=== PATIENT | female | born 1965 | race Caucasian/White ===

== ENCOUNTER 2021-07-12 22:07 | Inpatient (IN) | payer MEDICAID, SELFPAY ==
[2021-07-12] MEDS ORDERED: METHYLPREDNISOLONE 125 MG INJ ONE (22:34)
[2021-07-12 22:42] LABS: Absolute Lymphocytes (CBC) 1.2 K/uL (0.7-4.9); Hematocrit 41.4 % (36.0-45.0); Lymphocytes % 15.1 % (15.3-44.8); MPV 8.9 fL (7.6-11.3); RBC Red Blood Cell Count 4.72 M/uL (3.86-4.86)
[2021-07-12 22:46] LABS: Protime INR 1.09
[2021-07-12 23:16] LABS: ALT/SGPT 38 U/L (12-78); AST/SGOT 38 U/L (15-37); Albumin 2.7 g/dL (3.4-5.0); Alkaline Phosphatase 59 U/L (45-117); BUN Blood Urea Nitrogen 13 mg/dL (7-18); Bicarbonate 24 mmol/L (21-32); Bilirubin Direct < 0.1 mg/dL (0-0.2); Bilirubin Total 0.3 mg/dL (0.2-1.0); Ferritin 410.8 ng/mL (8-388); Glucose Level 132 mg/dL (74-106); Lipase 167 U/L (73-393); Magnesium 2.2 mg/dL (1.8-2.4); Potassium 3.9 mmol/L (3.5-5.1); Protein, Total 7.9 g/dL (6.4-8.2); Sodium Level 133 mmol/L (136-145); Troponin (Emerg Dept Use Only) < 0.02 ng/mL (0.0-0.045)
[2021-07-12] MEDS ORDERED: ENOXAPARIN 100 MG/ML SYR SQ ONE (23:30)
[2021-07-12 23:53] LABS: SARS-COV-2 RT PCR POSITIVE (NEGATIVE)
--- NOTE | 2021-07-13 00:44 | ER ---
Nurse's Notes [facility] Name: Arabella Khan Age: 56 yrs Sex: Female : 1965 Arrival Date: 07/12/2021 Time: 22:08 Bed 6 Private MD: Diagnosis: Pneumonia due to SARS-associated coronavirus;Acute respiratory failure with hypoxia Presentation: 07/12 22:42 Chief complaint: EMS states: She has been feeling ill for the past three weeks, but has tw5 not sought medical help. Her oxygen level was 68 % on Room air. Coronavirus screen: Vaccine status: uknown. Ebola Screen: Patient negative for fever greater than or equal to 101.5 degrees Fahrenheit, and additional compatible Ebola Virus Disease symptoms Patient denies exposure to infectious person. Patient denies travel to an Ebola-affected area in the 21 days before illness onset. Initial Sepsis Screen: Does the patient meet any 2 criteria? RR > 20 per min. HR > 90 bpm. Yes Does the patient have a suspected source of infection? No. Patient's initial sepsis screen is negative. Risk Assessment: Do you want to hurt yourself or someone else? Patient reports no desire to harm self or others. Onset of symptoms is unknown. 22:42 Method Of Arrival: EMS: [facility] tw5 22:42 Acuity: SAMARA 2 tw5 Triage Assessment: 22:42 General: Appears distressed, Behavior is anxious. Pain: Complains of pain in chest Pain tw5 currently is 7 out of 10 on a pain scale. 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 - Social history:: Smoking status: Patient denies any tobacco usage or history of. Screenin/02 22:47 Abuse screen: Denies threats or abuse. Denies injuries from another. Nutritional tw5 screening: No deficits noted. Tuberculosis screening: No symptoms or risk factors identified. Fall Risk No fall in past 12 months (0 pts). No secondary diagnosis (0 pts). IV access (20 points). Ambulatory Aid- Crutches/Cane/Walker (15 pts). Assessment: 22:47 Respiratory: Airway is patent Trachea midline Respiratory effort is labored, tw5 Respiratory pattern is tachypnea. 22:47 General: Appears distressed. Neuro: Level of Consciousness is awake, alert, obeys tw5 commands. Respiratory: Breath sounds are coarse bilaterally. Breath sounds are diminished in left posterior lower lobe, right posterior middle lobe and right posterior lower lobe. 23:28 Reassessment: No changes from previously documented assessment. Patient and/or family tw5 updated on plan of care and expected duration. Pain level reassessed. Cardiovascular: Heart tones S1 S2 present Capillary refill < 3 seconds. Respiratory: Patient placed on BiPAP: Respiratory Rate: 20. 07/13 03:51 General: Behavior is calm, cooperative, appropriate for age. Respiratory: Airway is tw5 patent Trachea midline Respiratory effort is labored, Respiratory pattern is tachypnea. : Urine is clear. 06:01 Reassessment: No changes from previously documented assessment. Patient and/or family tw5 updated on plan of care and expected duration. Pain level reassessed. Patient is alert, oriented x 3, equal unlabored respirations, skin warm/dry/pink. 06:03 Respiratory: Patient placed on BiPAP: Inspiratory Pressure: 14 Expiratory (EPAP) tw5 Pressure: 10 FiO2%: 95 the patient has severe shortness of breath. 20:13 General: Appears in no apparent distress. comfortable, Behavior is calm. Respiratory: tw5 Airway is patent Trachea midline Respiratory effort is even, Respiratory pattern is regular. 21:25 Respiratory: Airway Breath sounds are diminished in right middle lobe, left lower lobe tw5 and right lower lobe. 07/14 01:21 Reassessment: Patient appears in no apparent distress at this time. No changes from tw5 previously documented assessment. " I am just feeling itchy all over.". 03:31 Pain: Complains of pain in chest Pain currently is 5 out of 10 on a pain scale. tw5 Vital Signs: 07/12 22:42 BP 130 / 96; Pulse 112; Resp 22; Temp 99.6; Pulse Ox 88% on Non-rebreather mask; Weight tw5 90.72 kg; Height 5 ft. 1 in. (154.94 cm); Pain 7/10; 23:36 BP 110 / 77; Pulse 101; Resp 27; Pulse Ox 93% on 95% BiPAP; tw5 07/13 04:08 BP 125 / 69; Pulse 92; Resp 18; Pulse Ox 90% on BiPAP; tw5 06:01 BP 125 / 69; Pulse 97; Resp 18; Pulse Ox 90% on 95% BiPAP; tw5 06:53 BP 137 / 112; Pulse 88; Resp 27; Pulse Ox 90% ; tw5 20:13 BP 123 / 61; Pulse 73; Resp 26; Pulse Ox 88% on 100% BiPAP; tw5 21:25 BP 123 / 61; Pulse 72; Resp 29; Pulse Ox 89% on BiPAP; tw5 07/14 01:21 BP 112 / 69; Pulse 73; Resp 26; Pulse Ox 97% on BiPAP; tw5 07/12 22:42 Body Mass Index 37.79 (90.72 kg, 154.94 cm) tw5 ED Course: 07/12 22:08 Patient arrived in ED. mw2 22:14 Manny Mccain PA is PHCP. jr8 22:14 Mike Harris MD is Attending Physician. jr8 22:28 CXR XRAY In Process Unspecified. EDMS 22:32 Xiomara Palma is Primary Nurse. tw5 22:42 Arm band placed on left wrist. tw5 22:46 Triage completed. tw5 22:48 EKG done, COVID swab sent to lab. Inserted saline lock: 20 gauge in right antecubital tw5 area, using aseptic technique. Blood collected. Maintain EMS IV. Dressing intact. Site clean \\T\\ dry. Gauge \\T\\ site: 20 LAC. 22:48 Basic Metabolic Panel Sent. tw5 22:48 Blood Culture Sent. tw5 22:48 BMP Sent. tw5 22:48 Magnesium Sent. tw5 22:48 TS Sent. tw 22:48 COVID-19/FLU A+B (Document "Date of Onset" if Symptomatic) Sent. 22:49 CBC with Diff Sent. tw 22:49 Blood Culture Adult (2) Sent. tw 22:49 LFT's Sent. tw 22:49 Ferritin Sent. tw 22:49 D-Dimer Sent. tw 22:49 C-Reactive Protein Sent. tw5 22:49 Lactate Sent. tw5 22:49 Lipase Sent. tw5 22:49 PT-INR Sent. tw5 22:49 Procalcitonin Sent. tw5 22:49 Troponin (emerg Dept Use Only) Sent. tw5 23:28 Patient has correct armband on for positive identification. Placed in gown. Bed in low tw5 position. Call light in reach. Side rails up X 1. double cutter on. Pulse ox on. NIBP on. Door closed. Noise minimized. Moved to private room. Warm blanket given. Verbal reassurance given. 23:28 Villafuerte cath inserted, using sterile technique, 18 Fr., by mn, balloon inflated, to tw5 gravity drainage, Patient tolerated well. 07/13 00:21 CT Chest For PE Angio In Process Unspecified. EDMS 00:43 Antoine López DO is Hospitalizing Provider. jr8 06:04 No provider procedures requiring assistance completed. tw5 06:09 Urinalysis Sent. tw5 07:00 Patient admitted, IV remains in place. intact, No redness/swelling at site. jl7 20:13 Appears to be sleeping. tw5 21:25 Diet: Patient given water. tw5 07/14 07:23 Primary Nurse role handed off by Xiomara Palma bp 07:23 Sanchez Canchola, RN is Primary Nurse. bp Administered Medications: 07/12 22:42 Drug: SOLU-Medrol (methylPrednisoLONE) 125 mg Route: IVP; Site: right antecubital; tw5 07/13 04:09 Follow up: Response: No adverse reaction tw5 07/12 23:34 Drug: Lovenox (enoxaparin) 1 mg/kg Route: Sub-Q; Site: left lower abdomen; tw5 07/13 04:09 Follow up: Response: No adverse reaction tw Outcome: 00:44 Decision to Hospitalize by Provider. jr8 07:00 Admitted to ER Hold. Please see [facility] for further documentation. jl7 07:00 Condition: stable 07:00 Discharge instructions given to patient, family, Instructed on the need for admit, Demonstrated understanding of instructions. 07/14 10:33 Patient left the ED. kj1 Signatures: Dispatcher [employer] EDMS Manny Mccain PA PA jr8 Gladys Harp RN RN jl7 Peltier, Brian, RN RN bp Yeni Tapia mw2 Jelena Baum kj1 Xiomara Palma tw5
--- NOTE | 2021-07-13 00:45 | EDPHYS ---
Physician Documentation [facility] Name: Arabella Khan Age: 56 yrs Sex: Female : 1965 Arrival Date: 07/12/2021 Time: 22:08 Bed 6 Private MD: ED Physician Mike Harris HPI: 07/12 23:15 This 56 yrs old Female presents to ER via EMS with complaints of shortness of breath. jr8 23:15 The patient has shortness of breath at rest. Onset: The symptoms/episode began/occurred jr8 gradually, 3 week(s) ago, and became worse and became persistent. Duration: The symptoms are continuous. The patient's shortness of breath is aggravated by light activity. Associated signs and symptoms: Pertinent positives: non-productive cough. Severity of symptoms: At their worst the symptoms were moderate in the emergency department the symptoms are unchanged. The patient has not experienced similar symptoms in the past. The patient has not recently seen a physician. also stated that she has had irregular vaginal bleeding . 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 - Social history:: Smoking status: Patient denies any tobacco usage or history of. ROS: 07/12 23:15 Eyes: Negative for injury, pain, redness, and discharge, ENT: Negative for injury, jr8 pain, and discharge, Neck: Negative for injury, pain, and swelling, Cardiovascular: Negative for chest pain, palpitations, and edema, Abdomen/GI: Negative for abdominal pain, nausea, vomiting, diarrhea, and constipation, Back: Negative for injury and pain, MS/Extremity: Negative for injury and deformity, Skin: Negative for injury, rash, and discoloration, Neuro: Negative for headache, weakness, numbness, tingling, and seizure. Respiratory: Positive for cough, dyspnea on exertion, shortness of breath. : Positive for vaginal bleeding. Exam: 23:15 Eyes: Pupils equal round and reactive to light, extra-ocular motions intact. Lids and jr8 lashes normal. Conjunctiva and sclera are non-icteric and not injected. Cornea within normal limits. Periorbital areas with no swelling, redness, or edema. ENT: Nares patent. No nasal discharge, no septal abnormalities noted. Tympanic membranes are normal and external auditory canals are clear. Oropharynx with no redness, swelling, or masses, exudates, or evidence of obstruction, uvula midline. Mucous membranes moist. Neck: Trachea midline, no thyromegaly or masses palpated, and no cervical lymphadenopathy. Supple, full range of motion without nuchal rigidity, or vertebral point tenderness. No Meningismus. 23:15 Abdomen/GI: Soft, non-tender, with normal bowel sounds. No distension or tympany. No guarding or rebound. No evidence of tenderness throughout. Back: No spinal tenderness. No costovertebral tenderness. Full range of motion. MS/ Extremity: Pulses equal, no cyanosis. Neurovascular intact. Full, normal range of motion. Neuro: Awake and alert, GCS 15, oriented to person, place, time, and situation. Cranial nerves II-XII grossly intact. Motor strength 5/5 in all extremities. Sensory grossly intact. 23:15 Constitutional: The patient appears alert, awake, in obvious distress, mildly distressed. 23:15 Cardiovascular: Rate: tachycardic, Pulses: Pulses are 2+ in right radial artery and left radial artery. Heart sounds: normal, normal S1and S2, no S3 or S4, no murmur, no rub, no gallop, Edema: is not appreciated. 23:15 Respiratory: moderate respiratory distress is noted, Respirations: labored breathing, tachypnea, that is moderate, Breath sounds: fine crackles throughout both posterior lung valentin , Respiratory rate: 24 23:15 Skin: Appearance: Color: dusky, Temperature: normal temperature, Moisture: normal moisture. Vital Signs: 22:42 BP 130 / 96; Pulse 112; Resp 22; Temp 99.6; Pulse Ox 88% on Non-rebreather mask; Weight tw5 90.72 kg; Height 5 ft. 1 in. (154.94 cm); Pain 7/10; 23:36 BP 110 / 77; Pulse 101; Resp 27; Pulse Ox 93% on 95% BiPAP; tw5 07/13 04:08 BP 125 / 69; Pulse 92; Resp 18; Pulse Ox 90% on BiPAP; tw5 06:01 BP 125 / 69; Pulse 97; Resp 18; Pulse Ox 90% on 95% BiPAP; tw5 06:53 BP 137 / 112; Pulse 88; Resp 27; Pulse Ox 90% ; tw5 20:13 BP 123 / 61; Pulse 73; Resp 26; Pulse Ox 88% on 100% BiPAP; tw5 21:25 BP 123 / 61; Pulse 72; Resp 29; Pulse Ox 89% on BiPAP; tw07/14 01:21 BP 112 / 69; Pulse 73; Resp 26; Pulse Ox 97% on BiPAP; 07/12 22:42 Body Mass Index 37.79 (90.72 kg, 154.94 cm) tw5 MDM: 07/12 22:14 Patient medically screened. jr8 23:15 Data reviewed: vital signs, nurses notes, lab test result(s), EKG, radiologic studies, jr8 plain films. Data interpreted: Pulse oximetry: on 100 % NRB is 88 %. Interpretation: hypoxia. Counseling: I had a detailed discussion with the patient and/or guardian regarding: the historical points, exam findings, and any diagnostic results supporting the discharge/admit diagnosis, lab results, radiology results, the need for further work-up and treatment in the hospital. 07/12 22:15 Order name: BMP [facility] 07/12 22:15 Order name: Blood Culture Adult (2) 07/12 22:15 Order name: C-Reactive Protein; Complete Time: 23:18 [facility] 07/12 22:15 Order name: CBC with Diff 07/12 22:15 Order name: D-Dimer; Complete Time: 23:14 07/12 22:15 Order name: Ferritin; Complete Time: 23:18 07/12 22:15 Order name: LFT's; Complete Time: 23:18 07/12 22:15 Order name: Lactate; Complete Time: 23:14 07/12 22:15 Order name: Lipase; Complete Time: 23:18 07/12 22:15 Order name: PT-INR; Complete Time: 23:14 07/12 22:15 Order name: Procalcitonin; Complete Time: 23:14 07/12 22:15 Order name: Ptt, Activated; Complete Time: 23:14 jr8 07/12 22:15 Order name: Troponin (emerg Dept Use Only); Complete Time: 23:18 jr8 07/12 22:15 Order name: Magnesium; Complete Time: 23:18 jr8 07/12 22:15 Order name: COVID-19/FLU A+B (Document "Date of Onset" if Symptomatic); Complete Time: [facility] 00:29 07/12 22:15 Order name: TS; Complete Time: 00:29 jr8 07/12 22:16 Order name: Basic Metabolic Panel; Complete Time: 23:18 EDMS 07/12 22:16 Order name: Blood Culture; Complete Time: 03:25 EDMS 07/12 22:16 Order name: CBC with Automated Diff; Complete Time: 23:14 EDMS 07/13 01:55 Order name: Lactate Sepsis 2 HR Follow-up; Complete Time: 02:12 EDMS 07/13 04:26 Order name: ABO/RH no charge; Complete Time: 15:11 EDMS 07/13 06:04 Order name: Urinalysis tw5 07/13 06:09 Order name: Urine Dipstick-Ancillary; Complete Time: 15:11 EDMS 07/13 06:27 Order name: Urinalysis; Complete Time: 15:11 EDMS 07/13 06:52 Order name: Urine Microscopic Only; Complete Time: 15:11 EDMS 07/13 07:57 Order name: Glucose, Ancillary Testing; Complete Time: 15:11 EDMS 07/13 08:27 Order name: Procalcitonin; Complete Time: 15:11 EDMS 07/13 12:05 Order name: C-Reactive Protein; Complete Time: 15:11 EDMS 07/13 16:43 Order name: Glucose, Ancillary Testing; Complete Time: 16:55 EDMS 07/13 21:01 Order name: Glucose, Ancillary Testing; Complete Time: 21:23 EDMS 07/12 22:15 Order name: CXR XRAY; Complete Time: 15:11 jr8 07/12 22:15 Order name: EKG; Complete Time: 22:16 jr8 07/12 22:15 Order name: Cardiac monitoring; Complete Time: 22:48 8 07/12 22:15 Order name: Droplet/Contact Precautions; Complete Time: 22:49 jr8 07/12 22:15 Order name: EKG - Nurse/Tech; Complete Time: 22:49 jr8 07/12 22:15 Order name: IV Start; Complete Time: 22:49 jr8 07/12 22:15 Order name: Labs collected and sent; Complete Time: 22:49 jr8 07/12 22:15 Order name: O2 Per Protocol; Complete Time: 22:49 jr8 07/12 22:15 Order name: O2 Sat Monitoring; Complete Time: :49 8 07/12 22:15 Order name: Urine Dipstick-Ancillary (obtain specimen); Complete Time: :49 jr8 07/12 23:19 Order name: CT Chest For PE Angio jr8 07/12 23:28 Order name: Villafuerte; Complete Time: 23:28 tw5 07/13 00:33 Order name: CONS Physician Consult EDAK 07/13 13:41 Order name: US; Complete Time: 15:11 EDMS 07/14 03:22 Order name: CBC with Automated Diff; Complete Time: 03:25 EDMS 07/14 03:49 Order name: Comprehensive Metabolic Panel EDMS 07/14 03:49 Order name: Phosphorus EDMS 07/14 03:49 Order name: Lipid Profile EDMS 07/14 03:49 Order name: C-Reactive Protein EDMS 07/14 03:49 Order name: T4 Free EDMS 07/14 03:49 Order name: Magnesium EDMS 07/14 03:49 Order name: Thyroid Stimulating Hormone EDMS 07/14 03:49 Order name: Ferritin EDMS 07/14 04:13 Order name: Procalcitonin EDMS 07/14 07:25 Order name: Urine Culture EDAK Administered Medications: 22:42 Drug: SOLU-Medrol (methylPrednisoLONE) 125 mg Route: IVP; Site: right antecubital; tw5 07/13 04:09 Follow up: Response: No adverse reaction tw5 07/12 23:34 Drug: Lovenox (enoxaparin) 1 mg/kg Route: Sub-Q; Site: left lower abdomen; tw07/13 04:09 Follow up: Response: No adverse reaction Disposition: 07:24 Co-signature as Attending Physician, Mike Harris MD. [email or web address] Disposition Summary: 07/13/21 00:44 Hospitalization Ordered Hospitalization Status: Inpatient Admission jr8 Provider: Prezas, Antoine jr8 Condition: Fair jr8 Problem: new jr8 Symptoms: have improved jr8 Bed/Room Type: Standard [facility] Location: Telemetry/MedSurg (Inpatient)(07/14/21 08:45) dw Room Assignment: [facility](07/14/21 08:45) dw Diagnosis - Pneumonia due to SARS-associated coronavirus jr8 - Acute respiratory failure with hypoxia jr8 Forms: - Medication Reconciliation Form jr8 - SBAR form jr8 Signatures: Dispatcher [employer] EDMS Darcy Irving RN RN Zoe Barahona RN RN Manny Mccain PA PA jr8 Mike Harris MD MD 7 Xiomara Palma 5 Corrections: (The following items were deleted from the chart) 02:32 00:44 Telemetry/MedSurg (Inpatient) jr8 02:32 00:44 jr8 07/14 08:45 0103 02:32 [facility] ER HOLD [facility] 07/14 08:45 07/13 02:32 ERHOLD- [facility]
--- NOTE | 2021-07-13 01:15 | P.HP ---
Certification for Inpatient Patient admitted to: Inpatient With expected LOS: >2 Midnights Patient will require the following post-hospital care: None Practitioner: I am a practitioner with admitting privileges, knowledge of patient current condition, hospital course, and medical plan of care. Services: Services provided to patient in accordance with Admission requirements found in Title 42 Section 412.3 of the Code of Federal Regulations Patient History Date of Service: 07/13/21 Reason for admission: covid pneumonia History of Present Illness: Ms. Khan is a 56 yo F who presents with two days of increasing SOB and BARRETT. Upon presentation, room air sats were 68%, increased to 88% on nonrebreather, and then she was placed on BIPAP for sats in the 90s. She says for the past 4 weeks she has had fever, weakness, cough, pleuritic pain wheezing, and diarrhea. Also reports episodes of incontinence and lower abdominal pain with cough.She denies nausea and vomiting. Maintaining food and fluid intake. COVID test positive in the ED. She also reports over the past three weeks she has had heavy vaginal bleeding with clots that is different from her normal monthly periods. - Past Medical/Surgical History Diabetic: No Past Medical History: Patient denies medical history -: eye surgery - Family History Mother -: Diabetes Father Notes: dementia Brother -: Diabetes - Social History Smoking Status: Never smoker Alcohol use: No CD- Drugs: No Caffeine use: Yes Place of Residence: Home Review of Systems 10-point ROS is otherwise unremarkable General: Fever, Weakness, Malaise Eyes: Unremarkable Respiratory: Cough, Shortness of Breath, SOB with Excertion, Pleuritic Pain, Wheezing, As per HPI Cardiovascular: Unremarkable Gastrointestinal: Abdominal Pain, Diarrhea, As per HPI Genitourinary: Incontinence Musculoskeletal: Unremarkable Integumentary: Unremarkable Neurological: Unremarkable Lymphatics: Unremarkable Physical Examination - Physical Exam General: Alert, Obese HEENT: Atraumatic, PERRLA, Mucous membr. moist/pink, EOMI, Sclerae nonicteric Neck: Supple, 2+ carotid pulse no bruit, No LAD, Without JVD or thyroid abnormality Respiratory: Diminished Cardiovascular: No edema, Regular rate/rhythm, Normal S1 S2 Gastrointestinal: Normal bowel sounds, No tenderness Musculoskeletal: No tenderness Integumentary: No rashes Neurological: Normal speech, Normal strength at 5/5 x4 extr, Normal tone, Normal affect Lymphatics: No axilla or inguinal lymphadenopathy Urinary: Villafuerte catheter - Studies Laboratory Data (last 24 hrs) 07/12/21 22:10: PT 12.5, INR 1.09, APTT 30.3 07/12/21 22:10: WBC 8.20, Hgb 13.5, Hct 41.4, Plt Count 268 07/12/21 22:10: Sodium 133 L, Potassium 3.9, BUN 13, Creatinine 1.28, Glucose 132 H, Magnesium 2.2, Total Bilirubin 0.3, AST 38 H, ALT 38, Alkaline Phosphatase 59, Lipase 167 Assessment and Plan - Problems (Diagnosis) (1) Pneumonia due to COVID-19 virus Current Visit: Yes Status: Acute (2) Acute respiratory failure Current Visit: Yes Status: Acute Qualifiers: Respiratory failure complication: hypoxia Qualified Code(s): J96.01 - Acute respiratory failure with hypoxia (3) Menorrhagia Current Visit: Yes Status: Acute Qualifiers: Menorrhagia type: with regular cycle Qualified Code(s): N92.0 - Excessive and frequent menstruation with regular cycle - Plan pulmonology consulted, RT consulted continue BIPAP continue IV steroids, covid supplements daily CRP, procalcitonin, and ferritin CTPE pending, continue eliquis BID transvaginal US pending monitor hemoglobin and hematocrit Discharge Plan: Home Plan to discharge in: Greater than 2 days - Advance Directives Does patient have a Living Will: No Does patient have a Durable POA for Healthcare: No - Code Status/Comfort Care Code Status Assessed: Yes (full code ) Critical Care: No Time Spent Managing Pts Care (In Minutes): 70
[2021-07-13] MEDS ORDERED: BENZONATATE 100 MG CAP PO PRN (05:57)
[2021-07-13] MEDS ORDERED: MELATONIN 5 MG TABLET PO PRN (05:57)
[2021-07-13] MEDS ORDERED: HYDROCODONE/CHLORPHEN 5 ML/OSYR PO PRN (05:57)
[2021-07-13] MEDS ORDERED: ACETAMINOPHEN 500 MG TAB PO PRN (05:57)
[2021-07-13] MEDS ORDERED: ONDANSETRON 4 MG/2 ML VIAL IV PRN (05:57)
[2021-07-13 06:09] LABS: Urine Blood 2+ (Negative); Urine Glucose Negative (Negative); Urine Protein 2+ (Negative); Urine Specific Gravity <=1.005 (1.005-1.030); Urine pH 5.5 (5.0-7.0)
[2021-07-13 06:19] LABS: Urine Appearance CLEAR (Clear); Urine Bilirubin NEGATIVE (Negative); Urine Blood 2+ (Negative); Urine Color YELLOW (Yellow); Urine Glucose NEGATIVE (Negative); Urine Protein 1+ (Negative); Urine Specific Gravity >=1.030 (1.005-1.030)
[2021-07-13 06:26] LABS: Urine Microscopic Reflex ORDER UMIC
[2021-07-13 06:52] LABS: Urine Bacteria 20-50 /HPF (<20)
[2021-07-13] MEDS: INSULIN -REGULAR HUMAN 50 UNIT/0.5 ML ML SQ SCH ×4 (07:30→20:50)
--- NOTE | 2021-07-13 07:36 | RAD REPORT ---
EXAM DESCRIPTION: RAD - Chest Single View - 07/12/2021 10:28 pm CLINICAL HISTORY: DYSPNEA COMPARISON: Chest For Pe Angio dated 07/12/2021 FINDINGS: Lines: None. Lungs: Moderate to severe bilateral interstitial and airspace opacities. Pleural: No significant pleural effusions or pneumothorax. Cardiac: The heart size is within normal limits. Bones: No acute fractures. Other: IMPRESSION: Widespread airspace disease concerning for multifocal pneumonia, including Covid-19.
[2021-07-13] MEDS ORDERED: POTASSIUM 25 MEQ EFFERV TAB PO ONE (07:44)
[2021-07-13] MEDS ORDERED: ASPIRIN EC 81 MG TAB PO ONE (08:08)
[2021-07-13] MEDS ORDERED: NPH (HUMAN) 100 UNITS/ML INSULIN SQ ONE (08:08)
[2021-07-13] MEDS ORDERED: THIAMINE HCL 100 MG TABLET ONE (08:08)
[2021-07-13] MEDS ORDERED: ASCORBIC ACID 500 MG TABLET ONE ×2 (08:08→20:55)
[2021-07-13] MEDS ORDERED: METHYLPREDNISOLONE 40 MG INJ ONE ×2 (08:09→20:56)
[2021-07-13] MEDS ORDERED: APIXABAN 5 MG TABLET ONE ×2 (08:09→20:55)
[2021-07-13] MEDS ORDERED: VITAMIN D 1000 UNIT TAB ONE (08:09)
[2021-07-13] MEDS ORDERED: FAMOTIDINE 20 MG TAB ONE (08:10)
[2021-07-13] MEDS ORDERED: POTASSIUM 25 MEQ EFFERV TAB ONE (08:10)
[2021-07-13] MEDS ORDERED: MORPHINE 2 MG/ML SYR ONE (08:11)
[2021-07-13] MEDS: ASCORBIC ACID 500 MG TABLET PO SCH ×4 (09:00→21:00)
[2021-07-13] MEDS: VITAMIN D 1000 UNIT TAB PO SCH (09:00)
[2021-07-13] MEDS: ZINC SULFATE 220 MG CAP PO SCH (09:00)
[2021-07-13] MEDS: ASPIRIN EC 81 MG TAB PO SCH (09:00)
[2021-07-13] MEDS: THIAMINE HCL 100 MG TABLET PO SCH (09:00)
[2021-07-13] MEDS: FAMOTIDINE 20 MG TAB PO SCH (09:00)
[2021-07-13] MEDS: METHYLPREDNISOLONE 125 MG INJ IV SCH ×2 (09:00→21:00)
[2021-07-13] MEDS: APIXABAN 5 MG TABLET PO SCH ×2 (09:00→21:00)
[2021-07-13] MEDS: MORPHINE 2 MG/ML SYR IV PRN (09:05)
--- NOTE | 2021-07-13 11:01 | P.CNS ---
Date of Consult: 07/13/21 Reason for Consult: Respiratory failure from coronavirus Chief Complaint: covid pneumonia History of Present Illness: Patient is 56 years of age admitted with acute onset of shortness of breath dyspnea on exertion respiratory failure x-ray consistent with coronavirus pneumonia she is currently on BiPAP/currently for the past 4 weeks she has been having some problems history of recent heavy vaginal bleeding Allergies victine Allergy (Uncoded 07/13/21 05:57) Anaphylaxis - Past Medical/Surgical History Diabetic: No -: eye surgery - Family History Mother Medical History: Diabetes Father Notes: dementia Brother Medical History: Diabetes - Social History Alcohol use: No CD- Drugs: No Caffeine use: Yes Place of Residence: Home Review of Systems General: Weakness Respiratory: Shortness of Breath Physical Examination Temp Pulse Resp BP Pulse Ox 97.6 F 84 22 H 100/56 L 90 L 07/13/21 08:00 07/13/21 08:00 07/13/21 09:05 07/13/21 08:00 07/13/21 09:05 General: Alert, Moderate distress, Other (Patient is on BiPAP) Laboratory Data (last 24 hrs) 07/12/21 22:10: PT 12.5, INR 1.09, APTT 30.3 07/12/21 22:10: WBC 8.20, Hgb 13.5, Hct 41.4, Plt Count 268 07/12/21 22:10: Sodium 133 L, Potassium 3.9, BUN 13, Creatinine 1.28, Glucose 132 H, Magnesium 2.2, Total Bilirubin 0.3, AST 38 H, ALT 38, Alkaline Phosphatase 59, Lipase 167 - Problems (1) Pneumonia due to COVID-19 virus Current Visit: Yes Status: Acute Plan: Patient is 56 years of age admitted with respiratory failure from coronavirus chest x-ray characteristic changes patient is on maximum oxygen prognosis poor severe changes on the x-ray patient has not been vaccinated or has had coronavirus infection before
--- NOTE | 2021-07-13 13:40 | RAD REPORT ---
EXAM DESCRIPTION: US - Transvaginal Study Probe - 07/13/2021 12:41 pm CLINICAL HISTORY: abnormal vaginal bleeding Pelvic pain. COMPARISON: No comparisons FINDINGS: Extremely limited study is submitted. The uterus appears grossly normal in size. The endometrial stripe measures 18 mm, thickened. Neither ovary is well identified. Bowel gas shadowing obscures both ovaries. No adnexal mass is present. No significant pelvic ascites. IMPRESSION: A very limited examination is submitted.Endometrial stripe appears thickened to 18 mm. T his can be result of endometrial hyperplasia, polyp or carcinoma. Direct visualization with hysterosc opy may be considered.
[2021-07-13] MEDS: BARICITINIB 2 MG TABLET PO SCH (15:00)
--- NOTE | 2021-07-13 15:07 | P.PN ---
Date of Service: 07/13/21 Patient seen and examined. She is currently dependent on BiPAP and 100% FiO2. Patient seen by pulmonary. Impression: Pneumonia due to COVID-19 Acute respiratory failure with hypoxia Morbid obesity Plan: Pulmonary input appreciated. Continue IV steroid. Patient started on baricitinib. Anticoagulation with Eliquis. Watch for active bleeding. Monitor BMP and CBC. Wean oxygen.
--- NOTE | 2021-07-13 17:10 | RAD REPORT ---
EXAM DESCRIPTION: CT - Chest For Pe Angio - 07/13/2021 6:16 am CLINICAL HISTORY: DYSPNEA. COMPARISON: None. TECHNIQUE: CTA of the chest was performed following intravenous administration of iodinated contrast . Axial soft tissue and lung window, and coronal and sagittal soft tissue window reconstructions were created and sent to PACS. 3D postprocessing was performed on an independent workstation, with images sent to PACS for subsequen t review. This exam was performed according to our departmental dose-optimization program, which includes autom ated exposure control, adjustment of the mA and/or kV according to patient size and/or use of iterati ve reconstruction technique. FINDINGS: Suboptimal exam due to mild streak artifact from patient body habitus. Vascular: The pulmonary arteries are adequately opacified to the segmental level. No CT evidence of a cute pulmonary thromboembolism. No evidence of aortic aneurysm or dissection. Lungs and pleura: Moderate streaky pulmonary opacities with associated interstitial thickening and gr oundglass opacities throughout both lungs. No pleural effusion. No pneumothorax. Mediastinum and neck: Mild mediastinal and bilateral hilar lymphadenopathy. Unremarkable appearance o f the thyroid gland. Cardiac: No cardiomegaly or pericardial effusion. Abdomen: Hepatic steatosis. Musculoskeletal: No concerning osseous abnormality. IMPRESSION: 1. No CTA evidence of acute pulmonary thromboembolism. 2. Moderate pulmonary opacities and interstitial thickening, concerning for infectious/inflammatory process. 3. Mild mediastinal and bilateral hilar lymphadenopathy, likely reactive. 4. Hepatic steatosis. Electronically signed by: Irais Lo MD 07/13/2021 12:41 AM BUSINESS LAW TEACHER Due to temporary technical issues with the PACS/Fluency reporting system, reports are being signed by the in house radiologists without review as a courtesy to insure prompt reporting. The interpreting radiologist is fully responsible for the content of the report.
[2021-07-13] MEDS ORDERED: INFLUENZA VACCINE (for 6+ mo) 0.5 ML DOSE IMVAC ONE ×2 (20:00→20:57)
[2021-07-14 03:20] LABS: Absolute Lymphocytes (CBC) 1.5 K/uL (0.7-4.9); Hematocrit 38.5 % (36.0-45.0); Lymphocytes % 10.5 % (15.3-44.8); MPV 8.8 fL (7.6-11.3); RBC Red Blood Cell Count 4.39 M/uL (3.86-4.86)
[2021-07-14] MEDS ORDERED: MORPHINE 2 MG/ML SYR ONE (03:28)
[2021-07-14] MEDS: MORPHINE 2 MG/ML SYR IV PRN (03:29)
[2021-07-14 03:49] LABS: Albumin 2.4 g/dL (3.4-5.0); Bilirubin Total 0.3 mg/dL (0.2-1.0); C-Reactive Protein 47.8 mg/L (<3.00); Ferritin 565.9 ng/mL (8-388); Magnesium 2.5 mg/dL (1.8-2.4); Phosphorus 2.5 mg/dL (2.5-4.9); Potassium 4.2 mmol/L (3.5-5.1); Protein, Total 7.3 g/dL (6.4-8.2); Thyroid Stimulating Hormone 1.03 uIU/mL (0.360-3.740)
--- NOTE | 2021-07-14 06:35 | P.PN ---
Date of Service: 07/14/21 Subjective: Feels about the same as yesterday Reports very uncomfortable with BiPAP mask, pressure on her nose/face Runs of air leak around the mask Oxygen saturations in the mid to high 80s Without any new complaints ROS: 10 point ROS as noted above, otherwise negative Physical exam GEN: Alert, appears somewhat anxious/restless HEENT: BiPAP mask with air leak, sclera anicteric CV: Regular rate and rhythm, 1+ edema Pulm: Tachypnea, labored respirations on BiPAP ABD: Soft, nontender, nondistended Integumentary: No rashes Neuro: Moves all extremities Problem List Acute hypoxemic respiratory failure secondary to COVID-19 pneumonia Menorrhagia Morbid obesity Patient with significant oxygen requirement and hypoxia Pulmonology consulted Patient placed on BiPAP yesterday and remained on BiPAP overnight Ill fitting mask with air leak Continue steroids, vitamin supplementation, trend inflammatory markers We will check ABG this morning, patient may need to be transferred to the ICU Hemoglobin stable, patient on her menstrual period Dispo: Guarded prognosis. Likely need transfer to ICU, high risk for intubation if worsens Time Spent Managing Pts Care (In Minutes): 35
[2021-07-14] MEDS ORDERED: LORazepam 2 MG/ML VIAL IV ONE (06:49)
[2021-07-14] MEDS ORDERED: LORazepam 2 MG/ML VIAL ONE (07:29)
[2021-07-14] MEDS: INSULIN -REGULAR HUMAN 50 UNIT/0.5 ML ML SQ SCH ×4 (07:30→21:00)
[2021-07-14] MEDS: ZINC SULFATE 220 MG CAP PO SCH (10:38)
[2021-07-14] MEDS: VITAMIN D 1000 UNIT TAB PO SCH (10:38)
[2021-07-14] MEDS: ASPIRIN EC 81 MG TAB PO SCH (10:38)
[2021-07-14] MEDS: FAMOTIDINE 20 MG TAB PO SCH (10:38)
[2021-07-14] MEDS: ASCORBIC ACID 500 MG TABLET PO SCH ×4 (10:38→21:00)
[2021-07-14] MEDS: METHYLPREDNISOLONE 125 MG INJ IV SCH ×2 (10:38→21:00)
[2021-07-14] MEDS: THIAMINE HCL 100 MG TABLET PO SCH (10:38)
[2021-07-14] MEDS: APIXABAN 5 MG TABLET PO SCH ×2 (10:38→21:00)
[2021-07-14] MEDS: BARICITINIB 2 MG TABLET PO SCH (10:50)
[2021-07-14 11:24] LABS: Arterial Blood Carboxyhemoglob 0.9 % (0-1.5); Blood Gas Oxyhemoglobin 79.9 % (94-97); Blood O2 Saturation 81.4 % (92-98.5)
[2021-07-14 15:14] LABS: Blood Gas Oxyhemoglobin 84.7 % (94-97); Blood O2 Saturation 86.3 % (92-98.5)
--- NOTE | 2021-07-14 16:28 | P.PN ---
Subjective Date of Service: 07/14/21 Chief Complaint: covid pneumonia NC still requiring high concentration of Fio2 Review of Systems General: Weakness Respiratory: Shortness of Breath Physical Examination - Vital Signs Temperature: 98.9 F Blood Pressure: 121/64 Pulse: 85 Respirations: 22 Pulse Ox (%): 87 - Physical Exam General: Moderate distress Assessment & Plan - Problems (Diagnosis) (1) Pneumonia due to COVID-19 virus Current Visit: Yes Status: Acute Plan: Resp failure from COVID not doign well very hypoxic Tx to ICU ABGS/ poss intubation
[2021-07-14] MEDS ORDERED: METHYLPREDNISOLONE 125 MG INJ ONE (22:53)
[2021-07-14] MEDS ORDERED: ASCORBIC ACID 500 MG TABLET ONE (22:54)
[2021-07-14] MEDS ORDERED: APIXABAN 5 MG TABLET ONE (22:54)
[2021-07-15] MEDS ORDERED: FUROSEMIDE 40 MG/4 ML VIAL ONE ×2 (00:21→06:06)
[2021-07-15] MEDS ORDERED: LORazepam 2 MG/ML VIAL ONE (01:31)
[2021-07-15] MEDS ORDERED: RSI MEDICATION KIT IV ONE ×2 (02:50→02:55)
[2021-07-15] MEDS ORDERED: propofoL 1,000 MG/100 ML VIAL IV ONE ×6 (02:50→23:24)
[2021-07-15] MEDS ORDERED: IPRATROPIUM BROM 0.5MG/2.5ML ONE (03:25)
[2021-07-15] MEDS ORDERED: ARFORMOTEROL TARTRATE 15 MCG/2 ML VIAL.NEB ONE (03:25)
[2021-07-15] MEDS ORDERED: DOPAMINE/D5W 0 MG/0 ML BAG IV ONE (04:09)
--- NOTE | 2021-07-15 04:20 | P.PN ---
Date of Service: 07/15/21 Patient remained lethargic and hypoxic while on BiPAP. Her O2 sat was persistently in the 70s to upper 80s. A repeat ABG done shows PO2 of 38. Decision made to intubate the patient. During intubation process patient was noted to have difficulty with improving the O2 sat after BiPAP was removed even with ample bagging she continuously declined to the 50s. Patient was immediately intubated with noted copious amount of thickish secretions in the upper airway. Rapid intubation medications using 40 of etomidate and 100 of rocuronium was done. Patient still had clenching of the teeth at the time of intubation. Immediately after intubation it was difficult ventilating patient has O2 sats was in the [id number]/ 80s. Switch to assist control with pressure support and increasing vent rate to 30 with PEEP of 15 before adequate ventilation with O2 sat above 85% was achieved. Chest x-ray done to confirm placement of ET tube shows 15% right pneumothorax. ET tube was adjusted after the first chest x-ray. We will consult interventional radiology/pulmonary for chest tube placement this morning
[2021-07-15 04:28] LABS: Hematocrit 37.4 % (36.0-45.0); Lymphocytes % 7.4 % (15.3-44.8); MPV 8.3 fL (7.6-11.3)
[2021-07-15] MEDS ORDERED: DOPAMINE/D5W 400 MG/250 ML BAG IV SCH (04:45)
[2021-07-15 04:46] LABS: Albumin 2.4 g/dL (3.4-5.0); Bilirubin Total 0.4 mg/dL (0.2-1.0); C-Reactive Protein 29.6 mg/L (<3.00); Ferritin 429.4 ng/mL (8-388); Potassium 4.5 mmol/L (3.5-5.1); Protein, Total 7.4 g/dL (6.4-8.2)
[2021-07-15 05:38] LABS: Blood Morphology Comment NOT SEEN (NOT SEEN); Platelet Estimate ADEQ
[2021-07-15] MEDS ORDERED: FUROSEMIDE 40 MG/4 ML VIAL IV ONE (05:57)
[2021-07-15 06:16] LABS: Blood Gas Oxyhemoglobin 66.6 % (94-97)
[2021-07-15] MEDS: INSULIN -REGULAR HUMAN 50 UNIT/0.5 ML ML SQ SCH ×4 (07:30→21:00)
--- NOTE | 2021-07-15 07:32 | RAD REPORT ---
EXAM DESCRIPTION: RAD - Chest Single View - 07/15/2021 7:16 am CLINICAL HISTORY: f/u pneumo COMPARISON: Chest Single View dated 07/15/2021; Chest Single View dated 07/12/2021; Chest For Pe Angio d ated 07/12/2021 FINDINGS: Lines: Endotracheal tube in similar position at the aortic arch. NG tube below the diaphra gm. Subcutaneous emphysema has increased. Lungs: Widespread bilateral pulmonary opacities. Pleural: Right-sided pneumothorax is unchanged compared with for arch prior Cardiac: Cardiomegaly. Bones: No acute fractures. Other: IMPRESSION: Moderate right-sided pneumothorax is unchanged compared with 4 hours prior. Subcutaneous emphysema has increased. Widespread pulmonary opacities consistent with multifocal pneumonia. Stable support apparatus .
[2021-07-15] MEDS ORDERED: LIDOCAINE 1% MPF 30 ML VIAL ONE (07:48)
--- NOTE | 2021-07-15 08:28 | RAD REPORT ---
EXAM DESCRIPTION: RAD - Chest Single View - 07/15/2021 8:19 am CLINICAL HISTORY: s/p chest tube COMPARISON: Chest Single View dated 07/15/2021; Chest Single View dated 07/15/2021; Chest Single View da tila 07/12/2021 FINDINGS: Interval chest tube placement with tip near the mediastinum and no appreciable residual pn eumothorax. Increasing subcutaneous emphysema. IMPRESSION: No appreciable residual pneumothorax following chest tube placement. Increasing subcutan eous emphysema.
[2021-07-15] MEDS ORDERED: FENTANYL CITR 100 MCG/2 ML IV PRN (08:30)
[2021-07-15] MEDS ORDERED: NA CHLORIDE 0.9% 250 ML IV PRN (08:30)
[2021-07-15] MEDS ORDERED: HALOPERIDOL LACT 5 MG/ML INJ IV PRN (08:30)
[2021-07-15] MEDS ORDERED: MIDAZOLAM HCL 2 MG/2 ML INJ IV PRN (08:30)
[2021-07-15] MEDS ORDERED: LORazepam 2 MG/ML VIAL IV PRN (08:30)
--- NOTE | 2021-07-15 08:34 | P.PN ---
Subjective Date of Service: 07/15/21 Chief Complaint: covid pneumonia Condition worsened overnight / Ptintubated also developed penumothorax SP chest tube max O2 SQ emphysema Physical Examination - Vital Signs Temperature: 98.9 F Blood Pressure: 121/64 Pulse: 85 Respirations: 22 Pulse Ox (%): 87 Assessment & Plan - Problems (Diagnosis) (1) Acute respiratory failure due to COVID-19 Current Visit: Yes Status: Acute Plan: REsp fialure from COVID Chest tube/ SQ emphysema/ Renal fucntion worse/ LAbs reviewd/ Baldemar/ Vent protocol/ prognosis poor/Start on IV paralytic meds
[2021-07-15] MEDS: propofoL 1,000 MG/100 ML VIAL IV PRN ×4 (08:54→23:29)
[2021-07-15] MEDS: VITAMIN D 1000 UNIT TAB PO SCH (09:00)
[2021-07-15] MEDS: BARICITINIB 2 MG TABLET PO SCH ×2 (09:00→14:05)
--- NOTE | 2021-07-15 09:54 | P.CNS ---
Date of Consult: 07/15/21 Reason for Consult: KARLO/ CKD Requesting Physician: Ankit Winston Chief Complaint: covid pneumonia History of Present Illness: Ms. Khan is a 56 yo F who presents with two days of increasing SOB and BARRETT. Upon presentation, room air sats were 68%, increased to 88% on nonrebreather, and then she was placed on BIPAP for sats in the 90s. She says for the past 4 weeks she has had fever, weakness, cough, pleuritic pain wheezing, and diarrhea. Also reports episodes of incontinence and lower abdominal pain with cough.She denies nausea and vomiting. Maintaining food and fluid intake. COVID test positive in the ED. She also reports over the past three weeks she has had heavy vaginal bleeding with clots that is different from her normal monthly periods. 23:15 This 56 yrs old Female presents to ER via EMS with complaints of shortness of breath. jr8 23:15 The patient has shortness of breath at rest. Onset: The symptoms/episode began/occurred jr8 gradually, 3 week(s) ago, and became worse and became persistent. Duration: The symptoms are continuous. The patient's shortness of breath is aggravated by light activity. Associated signs and symptoms: Pertinent positives: non-pr oductive cough. Severity of symptoms: At their worst the symptoms were moderate in the emergency department the symptoms are unchanged. The patient has not experienced similar symptoms in the past. The patient has not recently seen a physician. also stated that she has had irregular vaginal bleeding . Allergies victine Allergy (Uncoded 07/13/21 05:57) Anaphylaxis Home medications list reviewed: Yes Home Medications: NK [No Home Meds] 07/13/21 - Past Medical/Surgical History Diabetic: No -: eye surgery - Family History Mother Medical History: Diabetes Father Notes: dementia Brother Medical History: Diabetes - Social History Alcohol use: No CD- Drugs: No Caffeine use: Yes Place of Residence: Home Review of Systems is unable to be obtained Physical Examination Temp Pulse Resp BP Pulse Ox 98.9 F 85 22 H 121/64 87 L 07/15/21 08:35 07/15/21 08:35 07/15/21 08:35 07/15/21 08:35 07/15/21 08:35 General: Unresponsive HEENT: Atraumatic Neck: Supple Respiratory: Clear to auscultation bilaterally Cardiovascular: No edema, Regular rate/rhythm Gastrointestinal: Non-distended, No guarding Musculoskeletal: No clubbing, No contractures Integumentary: No rashes, No cyanosis Neurological: Abnormal speech Blood work reviewed in the chart. Imagings Data: EXAM DESCRIPTION: RAD - Chest Single View - 07/15/2021 8:19 am CLINICAL HISTORY: s/p chest tube COMPARISON: Chest Single View dated 07/15/2021; Chest Single View dated 07/15/2021; Chest Single View dated 07/12/2021 FINDINGS: Interval chest tube placement with tip near the mediastinum and no appreciable residual pneumothorax. Increasing subcutaneous emphysema. IMPRESSION: No appreciable residual pneumothorax following chest tube placement. Increasing subcutaneous emphysema. EXAM DESCRIPTION: CT - Chest For Pe Angio - 07/13/2021 6:16 am CLINICAL HISTORY: DYSPNEA. COMPARISON: None. TECHNIQUE: CTA of the chest was performed following intravenous administration of iodinated contrast. Axial soft tissue and lung window, and coronal and sagittal soft tissue window reconstructions were created and sent to PACS. 3D postprocessing was performed on an independent workstation, with images sent to PACS for subsequent review. This exam was performed according to our departmental dose-optimization program, which includes automated exposure control, adjustment of the mA and/or kV according to patient size and/or use of iterative reconstruction technique. FINDINGS: Suboptimal exam due to mild streak artifact from patient body habitus. Vascular: The pulmonary arteries are adequately opacified to the segmental level. No CT evidence of acute pulmonary thromboembolism. No evidence of aortic aneurysm or dissection. Lungs and pleura: Moderate streaky pulmonary opacities with associated interstitial thickening and groundglass opacities throughout both lungs. No pleural effusion. No pneumothorax. Mediastinum and neck: Mild mediastinal and bilateral hilar lymphadenopathy. Unremarkable appearance of the thyroid gland. Cardiac: No cardiomegaly or pericardial effusion. Abdomen: Hepatic steatosis. Musculoskeletal: No concerning osseous abnormality. IMPRESSION: 1. No CTA evidence of acute pulmonary thromboembolism. 2. Moderate pulmonary opacities and interstitial thickening, concerning for infectious/inflammatory process. 3. Mild mediastinal and bilateral hilar lymphadenopathy, likely reactive. 4. Hepatic steatosis. Conclusions/Impression: KARLO likely ATN in the setting of hypotension/ hypoxemia CKD III with proteinuria -No NSAIDs -Continue Dopamine to maintain renal perfusion Hyponatremia -Continue furosemide Hypocalcemia -Continue Vitamin D3 DM II with CKD -RISS Moderate malnutrition -Consider tube feeds COVID-19 PNA Acute hypoxic respiratory failure complicated by a PTX -Continue Zinc and Vitamin C -Continue decadron -Chest tube placed -Intubated. Continue ventilatory support. Septic shock -Continue Dopamine Thank you kindly for the consultation. Case reviewed with Dr. Winston Critical Care: Yes (>30min)
[2021-07-15] MEDS ORDERED: ASCORBIC ACID 500 MG TABLET ONE ×3 (10:19→17:50)
[2021-07-15] MEDS ORDERED: MIDAZOLAM HCL 2 MG/2 ML INJ ONE (10:19)
[2021-07-15] MEDS ORDERED: FAMOTIDINE 20 MG/2 ML VIAL IV ONE (10:20)
[2021-07-15] MEDS ORDERED: ASPIRIN EC 81 MG TAB PO ONE (10:20)
[2021-07-15] MEDS ORDERED: APIXABAN 5 MG TABLET ONE (10:20)
[2021-07-15] MEDS ORDERED: THIAMINE HCL 100 MG TABLET ONE (10:20)
[2021-07-15] MEDS ORDERED: VITAMIN D 1000 UNIT TAB ONE (10:20)
[2021-07-15] MEDS ORDERED: ZINC SULFATE 220 MG CAP ONE (10:20)
[2021-07-15] MEDS ORDERED: METHYLPREDNISOLONE 40 MG INJ ONE (10:20)
[2021-07-15] MEDS: METHYLPREDNISOLONE 125 MG INJ IV SCH (10:22)
[2021-07-15] MEDS: THIAMINE HCL 100 MG TABLET PO SCH (10:22)
[2021-07-15] MEDS: ZINC SULFATE 220 MG CAP PO SCH (10:23)
[2021-07-15] MEDS: APIXABAN 5 MG TABLET PO SCH ×2 (10:23→21:00)
[2021-07-15] MEDS: ASPIRIN EC 81 MG TAB PO SCH (10:23)
[2021-07-15] MEDS: ASCORBIC ACID 500 MG TABLET PO SCH ×4 (10:24→21:00)
[2021-07-15] MEDS: FAMOTIDINE 20 MG/2 ML VIAL IV SCH (10:24)
[2021-07-15] MEDS ORDERED: ROCURONIUM 50 MG/5 ML VIAL IV ONE ×2 (11:11→11:14)
[2021-07-15] MEDS ORDERED: ETOMIDATE 20 MG/10 ML VIAL IV ONE ×2 (11:11→11:13)
[2021-07-15] MEDS ORDERED: INSULIN -REGULAR HUMAN 50 UNIT/0.5 ML ML ONE ×2 (11:33→16:48)
[2021-07-15] MEDS ORDERED: FENTANYL CITR 100 MCG/2 ML ONE (11:33)
--- NOTE | 2021-07-15 12:34 | RAD REPORT ---
EXAM DESCRIPTION: RAD - Chest Single View - 07/15/2021 3:39 am ADDENDUM #1 THIS REPORT CONTAINS FINDINGS THAT MAY BE CRITICAL TO PATIENT CARE: Called, telephoned, verbal rep ort was given oral to Dr Mike Harris at 4:10 AM LEAD SOFTWARE DEVELOPMENT ENGINEER on 07/15/2021. Electronically signed by: Harsha Moody MD 07/15/2021 4:12 AM LEAD SOFTWARE DEVELOPMENT ENGINEER End of Addendum EXAM DESCRIPTION: Chest Single View 07/15/2021 4:03 AM LEAD SOFTWARE DEVELOPMENT ENGINEER CLINICAL HISTORY: 56 years, Female, ET placement COMPARISON: Previous CTA performed 07/12/2021 FINDINGS: Single view of the chest was obtained portable. No prior films are available for compariso n. There is a endotracheal tube at mid clavicular line at approximately 3.5 cm from the aied. There is a NG tube in place There is a small upper and lateral pneumothorax measuring 3.2 cm from the lydia etal to the visceral pleura right lung apex. There is subcutaneous air within the neck. The heart is not enlarged. The thoracic aorta is unremarkable. Diffuse bilateral increased interstitial airspace o pacities. No significant pleural effusions. The rest of the soft tissue and bony structures demonst rate to be unremarkable. IMPRESSION: Right sided pneumothorax of approximately 10-15%. Endotracheal tube and NG tube in place. Diffuse bilateral increased interstitial airspace opacities. Electronically signed by: Harsha Moody MD 07/15/2021 4:07 AM LEAD SOFTWARE DEVELOPMENT ENGINEER Due to temporary technical issues with the PACS/Fluency reporting system, reports are being signed by the in house radiologist without review as a courtesy to ensure prompt reporting. The interpreting r adiologist is fully responsible for the content of the report.
--- NOTE | 2021-07-15 12:53 | P.OP ---
Preoperative diagnosis: RIGHT Pneumothorax Postoperative diagnosis: RIGHT Pneumothorax Primary procedure: RIGHT Tube Thoracostomy Anesthesia: Local 1% Lidocaine Estimated blood loss: <1cc Specimen: none Findings: Chest tube system tidaling well Complications: None Drain(s): Other (THAL chest tube) Transferred to: ICU Condition: Critical
--- NOTE | 2021-07-15 12:56 | P.OP ---
Preoperative diagnosis: Need for Venous Access Postoperative diagnosis: Need for Venous Access Primary procedure: Ultrasound Guided RIGHT Femoral Central Line Anesthesia: 1% Lidocaine Estimated blood loss: <5cc Specimen: none Findings: dark non-pulsatile blood present in all 3 ports Complications: None Drain(s): Other (Triple lumen central venous catheter) Transferred to: ICU Condition: Critical
[2021-07-15] MEDS: CISATRACURIUM BESYLATE 40 MG in NA CHLORIDE 0.9% 80 ML IV PRN ×2 (13:13→22:30)
[2021-07-15] MEDS: VITAMIN D 5,000 UNIT CAP PO SCH (14:05)
--- NOTE | 2021-07-15 15:23 | RAD REPORT ---
[facility]AM DES[facility] 3:01 pm CLINICAL HISTORY: Chest pain COMPARISON: July 15, 2020 FINDINGS: Tubes in good position. The extensive subcutaneous emphysema has progressed within the left chest. The remainder of the subcu taneous emphysema without significant change Right pneumothorax is not seen. Extensive bilateral pulmonary opacities are unchanged.
--- NOTE | 2021-07-15 17:34 | P.PN ---
Date of Service: 07/15/21 Subjective: Worsened overnight, required intubation and initiation of dopamine Developed right-sided pneumothorax General surgery consulted to place chest tube and central line Patient with significant hypoxemia on ABG earlier this morning Family updated this morning ROS: 10 point ROS as noted above, otherwise negative Physical exam GEN: Sedated, paralyzed HEENT: ETT in place, normal conjunctiva CV: Regular rate and rhythm, 1+ edema Pulm: On mechanical ventilation, PEEP: 15 ABD: Soft, nondistended Integumentary: No rashes. Subcutaneous emphysema bilateral upper chest Neuro: Moves all extremities Problem List Acute hypoxemic respiratory failure secondary to COVID-19 pneumonia Right pneumothorax Subcutaneous emphysema KARLO Menorrhagia Morbid obesity Patient with significant oxygen requirement and hypoxia. Required intubation in the morning of 07/15 Pulmonology consulted. continue baricitinib Continue steroids, vitamin supplementation, trend inflammatory markers Repeat ABG tomorrow Family updated at bedside Currently patient to continue with full code, family to further discuss CODE STATUS Patient currently menstruating Hemoglobin stable KARLO likely secondary to ATN, either from hypoxemia and hypotension Wean pressors as tolerated Nephrology consulted Dispo: Poor prognosis. Continue ICU level of care Family updated at bedside Discussed with her brother and sister. Patient's sister states she has been trying to get a hold of patient's oldest daughter who is out of state Time Spent Managing Pts Care (In Minutes): 35
--- NOTE | 2021-07-15 18:06 | CON ---
Date of Consultation: 07/15/2021 Brief History Of Present Illness: The patient is a 56-year-old female who presents to ED on 07/13/19 22 with several days of increasing shortness of breath and dyspnea on exertion. Her room air sats we re 68%. She has a history of morbid obesity. She was given a non-rebreather, which had her oxygen s aturation up to 88%. She was placed on BiPAP with her saturations going up in the 90s. She has been having trouble with shortness of breath, fever, cough, pleuritic-type chest pain, wheezing, diarrhea for the past 4 weeks prior to her presentation in the ER. She also had some incontinence tissues an d lower abdominal pain with cough. She denied any difficulty with food or fluid intake. Information is obtained from the chart as the patient is currently intubated during my examination. Reason for my consultation was for 2 reasons: 1.The patient had developed a new onset right-sided pneumothorax with 10-15 percent collapse. 2.The patient needs a central venous access, as she has worsening dysfunction and decline of her ove rall condition and the need for IV medications/pressors was possibly considered imminent. As such, I was consulted for the above-stated issues. Past Medical History: Obtained from the chart, which was only morbid obesity. Past Surgical History: Includes eye surgery. Family History: Consistent with mother had diabetes. Father had dementia. Brother had diabetes. Social History: No history of smoking, alcohol, or recreational drug use. Review of Systems: 10-point review of systems unable to obtain. Physical Examination: General: She is sedated, intubated and minimally responsive to painful noxious stimuli. HEENT: She is otherwise atraumatic. She has some overall anasarca. Her mucous membranes are somewh at moist. Neck: Supple without JVD. Chest: Expansion excursion with decreased breath sounds on the right. Cardiovascular: She had tachycardia during my examination. Gastrointestinal: Her abdomen is obese, soft, nontender. She has ravinder pubic rashes along her abdomi nal pannus. Neurologic: Unable to obtain. Vital Signs: Her physical exam included a BMI of 37.8. Her blood pressure was 120/64, heart rate wa s 102, respiratory rate was 22 on ventilator and her temperature was 98.9, oxygen saturations were ap proximately anywhere from 80 to 88 percent on my examination. Laboratory Data: Her pH was 7.3 on the arterial blood gas, CO2 was 42.5, O2 was 37.9, bicarb was 24. 1 her O2 saturation was 68%, oxyhemoglobin 66.6%, inspired FiO2 was 100%, hemoglobin was 13.3, methem oglobin was 1, carboxyhemoglobin was 1. White blood cell was 13.8, hemoglobin is 12.3, hematocrit of 37.4, platelet count was 394. Her neutrophils are 87%. Her sodium 140, potassium 4.5, chloride 108 , carbon dioxide 29, BUN 51, creatinine 1.7, glucose was 225. Her ferritin was 429.4. AST was 64, A LT 36, alkaline phosphatase is 58. C-reactive protein was 29.6, procalcitonin 0.11. Her chest x-ray performed at 7 a.m. on 07/15 was officially read as moderate right-sided pneumothorax is unchanged c omparable with 4 hours prior subcutaneous emphysema has increased. Widespread pulmonary opacities co nsistent with multifocal pneumonia. Stable support apparatus. Additional findings, patient had bloo d work which confirmed she was positive for SARS COVID pneumonia. Assessment And Plan: This is a 56-year-old female with severe COVID pneumonia with a right-sided pne umothorax and need for central venous access. 1.I have spoken with her brother, the medical power of collections attorney, and discussed the risks, benefits, and alternatives of placement of a right thoracostomy tube, including but not limited to bleeding, in fection, damage to tissues, injury to lungs, heart, great vessels; need for further operation or proc edures. In addition, I have also discussed risks of placement of central venous catheter including b ut not limited to bleeding, infection, damage to surrounding tissue, need for further operation and p rocedures. He agrees to proceed to both procedures. We will proceed. Thank you for this interesting consult. PEARL/JACKSON Voice ID: [id number] Report ID: [id number]
[2021-07-15] MEDS: ACETYLCYST 20% 4 ML VIAL IH SCH (20:00)
[2021-07-15] MEDS: dexAMETHasone 10 MG/ML VIAL IV SCH (20:00)
[2021-07-15] MEDS ORDERED: DOPAMINE/D5W 400 MG/250 ML BAG IV ONE (20:14)
--- NOTE | 2021-07-15 20:21 | OP ---
Date of Procedure: 07/15/2021 Surgeon: Fabien Krueger MD, Preoperative Diagnosis: Right pneumothorax. Postoperative Diagnosis: Right pneumothorax. Procedure Performed: Placement of a right tube thoracostomy. Anesthesia: Local with 1% lidocaine utilized. Estimated Blood Loss: Less than 1 cc. Specimen: None. Findings: Thal chest tube system tidaling well. Complications: None. Tube: Thal 18-Urdu chest tube placed at the sixth intercostal space. The patient remained in ICU in critical condition. Procedure In Detail: After informed consent was obtained from the patient's brother, the patient was prepped and draped in usual sterile fashion after adequate anesthesia was achieved. I palpated the area of the fifth and 6 intercostal space along the right midaxillary line. I dissected through the skin after appropriately anesthetizing the skin with 1% lidocaine and the entire tract leading up to the chest wall. I then palpated the area over the rib, inserted insertion needle, and obtained air a t this point. I then advanced the guidewire using Seldinger technique. I then removed the introduce r needle at this point over the wire and performed sequential dilatation pointing cranially and poste riorly. At this point, the 18-Urdu Thal chest tube was placed in the thoracic space. At this poin t, hooked up to the Pneumevac system. At this point, the system was tidaling well and chest tube was in good position. At this point, I then secured to the chest wall and we had significant improvemen t of the patient's oxygen saturation at the end the procedure. After securing this chest tube to the skin with an attached 2-0 nylon suture. Sterile dressing was then placed over top. The patient pricilla erated the procedure well without evidence of complication. The patient remained in the ICU in criti stehpy condition at the end the procedure. All counts were correct at the end of the case. TK/MODL Voice ID: [id number] Report ID: [id number]
--- NOTE | 2021-07-15 20:33 | OP ---
Date of Procedure: 07/15/2021 Surgeon: Fabien Krueger MD, Preoperative Diagnosis: Need for central venous access. Postoperative Diagnosis: Need for central venous access. Procedure Performed: Ultrasound-guided right femoral central line placement. Anesthesia: 1% lidocaine utilized. Estimated Fluid Loss: 5 cc. Specimen: None. Findings: Dark nonpulsatile blood return in all 3 ports. Complications: None. Drains: Triple-lumen central venous catheter, left in the right femoral vein. Condition: The patient remained in ICU in critical condition. Procedure In Detail: After informed consent was obtained from patient's family/brother, the patient was prepped and draped in usual sterile fashion. She had ultrasound guidance in the right inguinal r egion to locate and identify the right femoral vein, which was found to be patent. At this point, I anesthetized the skin with 1% lidocaine and then used a small finer needle to insert a guidewire into the right femoral vein without incident or complication. I advanced the wire and confirmed position with ultrasound guidance. At this point, the needle was removed. Wire remained in place. Now perf ormed a small didier incision overlying the insertion site. Sequential dilatation was performed and th e triple-lumen catheter was advanced using Seldinger technique over wire and the wire was then remove d. Wire was called at this point and all 3 ports pulled back dark red nonpulsatile blood quite easil y and flushed quite easily with saline. They were all flushed with saline and then capped. At this point, the triple-lumen catheter was then secured to the skin using 2-0 nylon suture and a sterile dr essing was placed over top. The patient tolerated the procedure well without evidence of complicatio n, remained in the ICU in critical condition at the end of the procedure. All counts were correct a t the end of the case. TK/MODL Voice ID: [id number] Report ID: [id number]
[2021-07-16] MEDS ORDERED: FUROSEMIDE 40 MG/4 ML VIAL IV SCH (01:00)
[2021-07-16] MEDS: ACETYLCYST 20% 4 ML VIAL IH SCH (02:00)
[2021-07-16] MEDS ORDERED: propofoL 1,000 MG/100 ML VIAL IV ONE ×5 (02:21→21:26)
[2021-07-16] MEDS ORDERED: FUROSEMIDE 40 MG/4 ML VIAL ONE (02:21)
[2021-07-16] MEDS ORDERED: DOPAMINE/D5W 400 MG/250 ML BAG IV SCH (03:30)
[2021-07-16] MEDS ORDERED: dexAMETHasone 10 MG/ML VIAL ONE ×3 (03:32→21:26)
[2021-07-16] MEDS: dexAMETHasone 10 MG/ML VIAL IV SCH ×3 (03:32→23:40)
[2021-07-16 03:47] LABS: Absolute Lymphocytes (CBC) 1.1 K/uL (0.7-4.9); MPV 8.8 fL (7.6-11.3); RBC Red Blood Cell Count 4.26 M/uL (3.86-4.86)
[2021-07-16 04:49] LABS: Albumin 2.5 g/dL (3.4-5.0); Bilirubin Total 0.4 mg/dL (0.2-1.0); C-Reactive Protein 38.5 mg/L (<3.00); Ferritin 410.3 ng/mL (8-388); Magnesium 3.2 mg/dL (1.8-2.4); Phosphorus 2.6 mg/dL (2.5-4.9); Protein, Total 7.6 g/dL (6.4-8.2)
[2021-07-16] MEDS ORDERED: FUROSEMIDE 100 MG in NA CHLORIDE 0.9% 90 ML IV SCH (06:00)
[2021-07-16 06:07] LABS: Arterial Blood Carboxyhemoglob 1.2 % (0-1.5); Blood Gas Oxyhemoglobin 78.7 % (94-97); Blood O2 Saturation 80.5 % (92-98.5)
--- NOTE | 2021-07-16 06:31 | P.PN ---
Date of Service: 07/16/21 Subjective: Intubated yesterday for worsening hypoxemia Chest tube placed yesterday for pneumothorax on right side Significant subcutaneous emphysema this morning Remains on dopamine SPO2 low 80s throughout the night ROS: Unable to be obtained, intubated/sedated Physical exam GEN: Sedated, paralyzed HEENT: ETT in place, normal conjunctiva CV: Regular rate and rhythm, trace pedal edema Pulm: On mechanical ventilation, significant subcutaneous emphysema ABD: Soft, nondistended Integumentary: No rashes. Neuro: paralyzed, sedated Problem List Acute hypoxemic respiratory failure secondary to COVID-19 pneumonia Right pneumothorax Subcutaneous emphysema KARLO Menorrhagia Morbid obesity Patient with significant oxygen requirement and hypoxia. Required intubation in the morning of 07/15 Right-sided pneumothorax, chest tube placed morning of 07/15, central line placed as well Severe subcutaneous emphysema, ER provider overnight placed fenestrated catheter subcutaneously to relieve some of the air. Check repeat chest x-ray to evaluate for left-sided pneumothorax Pulmonology consulted. continue baricitinib Continue steroids, vitamin supplementation, trend inflammatory markers ABG with slight improvement, but still significant hypoxemia Currently patient to continue with full code, family to further discuss CODE STATUS KARLO likely secondary to ATN, either from hypoxemia and hypotension. Patient does appear dry on exam, may benefit from some gentle fluids, nephrology consulted Wean pressors as tolerated Dispo: Poor prognosis. Continue ICU level of care Discussed with her brother and sister yesterday. Patient's sister states she has been trying to get a hold of patient's oldest daughter who is out of state Time Spent Managing Pts Care (In Minutes): 35
[2021-07-16] MEDS ORDERED: propofoL 200 MG/20 ML VIAL IV ONE (07:14)
[2021-07-16] MEDS ORDERED: DOPAMINE/D5W 400 MG/250 ML BAG IV ONE (07:52)
[2021-07-16] MEDS: CISATRACURIUM BESYLATE 40 MG in NA CHLORIDE 0.9% 80 ML IV PRN ×2 (07:53→19:57)
[2021-07-16] MEDS: propofoL 1,000 MG/100 ML VIAL IV PRN ×3 (07:55→15:59)
[2021-07-16] MEDS ORDERED: ACETYLCYST 20% 4 ML VIAL IH SCH (08:00)
--- NOTE | 2021-07-16 08:31 | P.PN ---
Subjective Date of Service: 07/16/21 Chief Complaint: Resp failure Condition worse refractory hypoxemia Review of Systems is unable to be obtained Physical Examination - Vital Signs Temperature: 97.4 F Blood Pressure: 129/70 Pulse: 77 Respirations: 28 Pulse Ox (%): 84 - Physical Exam General: Comatose Respiratory: Diminished, Other (Severe Crepitis) Cardiovascular: Edema Assessment & Plan - Problems (Diagnosis) (1) Acute respiratory failure due to COVID-19 Current Visit: Yes Status: Acute Plan: Resp failure refractory hypoxemia. CXRY reviewed unlikley to survive/ renal functionis worse / Meds reviewed Prog poor DC dopamine changed to Levophed DC acetylcysteine
--- NOTE | 2021-07-16 08:45 | RAD REPORT ---
EXAM DESCRIPTION: Getachewt Single View07/16/2021 8:26 am CLINICAL HISTORY: Chest pain COMPARISON: July 16, 2021 FINDINGS: Tubes in good position. Pneumothorax is not seen No significant change in the bilateral pulmonary opacities and subcutaneous emphysema.
[2021-07-16] MEDS: BARICITINIB 2 MG TABLET PO SCH (09:00)
[2021-07-16] MEDS ORDERED: FAMOTIDINE 20 MG/2 ML VIAL IV SCH (09:00)
[2021-07-16] MEDS ORDERED: ASPIRIN EC 81 MG TAB PO ONE (09:47)
[2021-07-16] MEDS ORDERED: FAMOTIDINE 20 MG/2 ML VIAL IV ONE (09:48)
[2021-07-16] MEDS ORDERED: ASCORBIC ACID 500 MG TABLET ONE ×4 (09:48→21:26)
[2021-07-16] MEDS ORDERED: INSULIN -REGULAR HUMAN 50 UNIT/0.5 ML ML ONE (09:57)
[2021-07-16] MEDS ORDERED: NOREPINEPHRINE 4 MG in D5W 250 ML IV SCH (10:00)
[2021-07-16] MEDS: INSULIN -REGULAR HUMAN 50 UNIT/0.5 ML ML SQ SCH ×4 (10:09→21:00)
[2021-07-16] MEDS: APIXABAN 2.5 MG TABLET PO SCH ×2 (10:10→23:40)
[2021-07-16] MEDS: ASPIRIN EC 81 MG TAB PO SCH (10:10)
[2021-07-16] MEDS: FAMOTIDINE 20 MG/2 ML VIAL IV SCH (10:11)
[2021-07-16] MEDS: ASCORBIC ACID 500 MG TABLET PO SCH ×4 (10:11→23:40)
[2021-07-16] MEDS: THIAMINE HCL 100 MG TABLET PO SCH (10:15)
[2021-07-16] MEDS ORDERED: THIAMINE HCL 100 MG TABLET ONE (10:16)
--- NOTE | 2021-07-16 11:40 | P.PN ---
Date of Service: 07/16/21 Vital Signs Temp Pulse Resp BP Pulse Ox 97.4 F 77 28 H 129/70 84 L 07/16/21 08:31 07/16/21 08:31 07/16/21 08:31 07/16/21 08:31 07/16/21 08:31 Medications Acetaminophen (Acetaminophen 500 Mg Tab) 500 mg PO Q4HP PRN PRN Reason: TEMP > 100' F Apixaban (Apixaban 2.5 Mg Tablet) 2.5 mg PO BID [facility] Last Admin: 07/16/21 10:10 Dose: 2.5 mg Documented by: Ascorbic Acid (Ascorbic Acid 500 Mg Tablet) 500 mg PO QID [facility] Last Admin: 07/16/21 10:11 Dose: 500 mg Documented by: Aspirin (Aspirin Ec 81 Mg Tab) 81 mg PO DAILY [facility] Last Admin: 07/16/21 10:10 Dose: 81 mg Documented by: Benzonatate (Benzonatate 100 Mg Cap) 100 mg PO TID PRN PRN Reason: COUGH Chlorphenir/Hydrocodone Polistirex (Hydrocodone/Chlorphen 5 Ml/Osyr) 5 ml PO BID PRN PRN Reason: COUGH Cholecalciferol (Vitamin D 5,000 Unit Cap) 5,000 unit PO DAILY [facility] Last Admin: 07/15/21 14:05 Dose: 5,000 unit Documented by: Dexamethasone (Dexamethasone 10 Mg/Ml Vial) 10 mg IV Q8H [facility] Last Admin: 07/16/21 03:32 Dose: 10 mg Documented by: Famotidine (Famotidine 20 Mg/2 Ml Vial) 20 mg IV DAILY [facility] Last Admin: 07/16/21 10:11 Dose: 20 mg Documented by: Fentanyl Citrate (Fentanyl Citr 100 Mcg/2 Ml) 25 mcg IV Q4HP PRN PRN Reason: Pain scale 8-10 (Severe) Last Admin: 07/15/21 11:34 Dose: 25 mcg Documented by: Haloperidol Lactate (Haloperidol Lact 5 Mg/Ml Inj) 2 mg IV Q4HP PRN PRN Reason: AGITATION Propofol (Diprivan) 1,000 mg in 100 mls @ 0 mls/hr IV PRN PRN; Protocol PRN Reason: 1st Choice Ventilator Sedation Last Admin: 07/16/21 11:32 Dose: 100 mls Documented by: Sodium Chloride (Sodium Chloride) 250 mls @ 999 mls/hr IV Q15M PRN PRN Reason: HYPOTENSION Cisatracurium Besylate 40 mg/ (Sodium Chloride) 100 mls @ 0 mls/hr IV PRN PRN; Protocol PRN Reason: NEUROMUSCULAR BLOCKAGE Last Admin: 07/16/21 07:53 Dose: 100 mls Documented by: Norepinephrine Bitartrate 4 mg (/ Dextrose) 254 mls @ 3.81 mls/hr IV TITR [facility]; Protocol Last Admin: 07/16/21 10:07 Dose: 1 mcg/min, 3.8 mls/hr Documented by: Insulin Human Regular (Insulin -Regular Human 50 Unit/0.5 Ml Ml) 0 unit SQ ACHS [facility]; Protocol Last Admin: 07/16/21 10:09 Dose: 2 unit Documented by: Lorazepam (Lorazepam 2 Mg/Ml Vial) 2 mg IV Q2HP PRN PRN Reason: Sedation-Propofol not effect Midazolam HCl (Midazolam Hcl 2 Mg/2 Ml Inj) 2 mg IV Q2HP PRN PRN Reason: Sedation-Propofol not effect Last Admin: 07/15/21 10:23 Dose: 2 mg Documented by: Morphine Sulfate (Morphine 2 Mg/Ml Syr) 2 mg IV Q6H PRN PRN Reason: Pain scale 8-10 (Severe) Last Admin: 07/14/21 03:29 Dose: 2 mg Documented by: Nutritional Formula (Vital Hp 1,000 Ml Bot) 0 ml RTH CONT ANNE-MARIE Ondansetron HCl (Ondansetron 4 Mg/2 Ml Vial) 4 mg IV Q6HP PRN PRN Reason: NAUSEA / VOMITING Sodium Chloride (Flush Normal Saline 10 Ml) 10 ml IV BID [facility] Last Admin: 07/16/21 09:00 Dose: 10 ml Documented by: Thiamine HCl (Thiamine Hcl 100 Mg Tablet) 200 mg PO DAILY [facility] Last Admin: 07/16/21 10:15 Dose: 200 mg Documented by: Microbiology Results 07/12/21 22:25 Blood - Blood Aerobic Blood Culture - Preliminary No growth in 24 hours. 07/12/21 22:25 Blood - Blood Anaerobic Blood Culture - Preliminary No growth in 24 hours. 07/12/21 22:10 Blood - Blood Aerobic Blood Culture - Preliminary No growth in 24 hours. 07/12/21 22:10 Blood - Blood Anaerobic Blood Culture - Preliminary No growth in 24 hours. Assessment/ Plan: Nephrology Limited IH/ ROS due to unresponsiveness. Worsening subcutaneous emphysema. Vitals, medications, blood work and imaging reviewed in the chart General: Unresponsive. Obese. HEENT: Atraumatic Neck: Supple Respiratory: Clear to auscultation bilaterally. Hip edema. Cardiovascular: No edema, Regular rate/rhythm Gastrointestinal: Non-distended, No guarding Musculoskeletal: No clubbing, No contractures Integumentary: No rashes, No cyanosis Neurological: Abnormal speech [place]te with light urine. Greater than 30min patient care. Blood work reviewed in the chart. Imagings Data: EXAM DESCRIPTION: RAD - Chest Single View - 07/15/2021 8:19 am CLINICAL HISTORY: s/p chest tube COMPARISON: Chest Single View dated 07/15/2021; Chest Single View dated 07/15/2021; Chest Single View dated 07/12/2021 FINDINGS: Interval chest tube placement with tip near the mediastinum and no appreciable residual pneumothorax. Increasing subcutaneous emphysema. IMPRESSION: No appreciable residual pneumothorax following chest tube placement. Increasing subcutaneous emphysema. EXAM DESCRIPTION: CT - Chest For Pe Angio - 07/13/2021 6:16 am CLINICAL HISTORY: DYSPNEA. COMPARISON: None. TECHNIQUE: CTA of the chest was performed following intravenous administration of iodinated contrast. Axial soft tissue and lung window, and coronal and sagittal soft tissue window reconstructions were created and sent to PACS. 3D postprocessing was performed on an independent workstation, with images sent to PACS for subsequent review. This exam was performed according to our departmental dose-optimization program, which includes automated exposure control, adjustment of the mA and/or kV according to patient size and/or use of iterative reconstruction technique. FINDINGS: Suboptimal exam due to mild streak artifact from patient body habitus. Vascular: The pulmonary arteries are adequately opacified to the segmental level. No CT evidence of acute pulmonary thromboembolism. No evidence of aortic aneurysm or dissection. Lungs and pleura: Moderate streaky pulmonary opacities with associated interstitial thickening and groundglass opacities throughout both lungs. No pleural effusion. No pneumothorax. Mediastinum and neck: Mild mediastinal and bilateral hilar lymphadenopathy. Unremarkable appearance of the thyroid gland. Cardiac: No cardiomegaly or pericardial effusion. Abdomen: Hepatic steatosis. Musculoskeletal: No concerning osseous abnormality. IMPRESSION: 1. No CTA evidence of acute pulmonary thromboembolism. 2. Moderate pulmonary opacities and interstitial thickening, concerning for infectious/inflammatory process. 3. Mild mediastinal and bilateral hilar lymphadenopathy, likely reactive. 4. Hepatic steatosis. Conclusions/Impression: KARLO likely ATN in the setting of hypotension/ hypoxemia CKD III with proteinuria -No NSAIDs -Continue Dopamine to maintain renal perfusion Hyponatremia -Continue furosemide Hypocalcemia -Continue Vitamin D3 DM II with CKD -RISS Moderate malnutrition -Consider tube feeds COVID-19 PNA Acute hypoxic respiratory failure complicated by a PTX -Continue Zinc and Vitamin C -Continue decadron -Chest tube placed -Intubated. Continue ventilatory support. Septic shock -Continue Dopamine Case reviewed with Dr. Winston
--- NOTE | 2021-07-16 13:04 | P.PN ---
Subjective Date of Service: 07/16/21 Chief Complaint: Resp failure Subjective: Worsening (Remains critically ill, intubated, pressor support) Physical Examination - Vital Signs Temperature: 97.4 F Blood Pressure: 129/70 Pulse: 77 Respirations: 28 Pulse Ox (%): 84 - Physical Exam General: Comatose Neck: Other (subcutaneous emphysema with needles in skin on bilateral chest) Respiratory: Diminished, Other (RIGHT chest tube in place on suction, functional) Assessment And Plan - Plan - continue supportive care - chest tube to remain in place on suction - needles in place for subcutaneous emphysema - patient remains crititally ill with covid pneumonia
[2021-07-16] MEDS: VITAMIN D 5,000 UNIT CAP PO SCH (13:56)
--- NOTE | 2021-07-16 17:51 | RAD REPORT ---
EXAM DESCRIPTION: RADChest Single View07/16/2021 4:23 am CLINICAL HISTORY: Change in condition COMPARISON: 07/15/2021. TECHNIQUE: XR CHEST 1 VIEW 07/16/2021 4:08 AM PROVIDER RELATIONS CONSULTANT FINDINGS: The heart is enlarged. There is severe diffuse subcutaneous emphysema. There are patchy ar eas of airspace disease which are poorly assessed. There is no pleural effusion. Previously seen righ t pneumothorax is not well seen. There are no acute osseous findings. Right chest tube has been place d. Endotracheal and nasogastric tubes are unchanged. IMPRESSION: Essentially complete resolution of right pneumothorax following placement of right chest tube. Electronically signed by: Greyson Rivera MD 07/16/2021 5:15 AM PROVIDER RELATIONS CONSULTANT Due to temporary technical issues with the PACS/Fluency reporting system, reports are being signed by the in house radiologists without review as a courtesy to insure prompt reporting. The interpreting radiologist is fully responsible for the content of the report.
[2021-07-16 21:24] LABS: Absolute Lymphocytes (CBC) 1.6 K/uL (0.7-4.9); Hematocrit 34.3 % (36.0-45.0); Lymphocytes % 6.7 % (15.3-44.8); MPV 8.4 fL (7.6-11.3); RBC Red Blood Cell Count 3.93 M/uL (3.86-4.86)
[2021-07-16] MEDS ORDERED: APIXABAN 5 MG TABLET ONE (21:26)
[2021-07-16 21:43] LABS: Blood Morphology Comment NOT SEEN (NOT SEEN); Platelet Estimate INCR; Platelets, Giant PRESENT
[2021-07-17] MEDS: propofoL 1,000 MG/100 ML VIAL IV PRN ×2 (02:54→23:51)
[2021-07-17] MEDS ORDERED: propofoL 1,000 MG/100 ML VIAL IV ONE ×4 (02:54→19:19)
[2021-07-17] MEDS: dexAMETHasone 10 MG/ML VIAL IV SCH ×2 (04:00→16:00)
[2021-07-17 05:02] LABS: Absolute Lymphocytes (CBC) 1.2 K/uL (0.7-4.9); Hematocrit 33.3 % (36.0-45.0); Lymphocytes % 4.6 % (15.3-44.8); MPV 8.7 fL (7.6-11.3); RBC Red Blood Cell Count 3.76 M/uL (3.86-4.86)
[2021-07-17 05:42] LABS: Albumin 2.1 g/dL (3.4-5.0); Bilirubin Total 0.5 mg/dL (0.2-1.0); C-Reactive Protein 21.5 mg/L (<3.00); Ferritin 369.5 ng/mL (8-388)
[2021-07-17 05:43] LABS: Magnesium 3.3 mg/dL (1.8-2.4); Potassium 4.9 mmol/L (3.5-5.1)
--- NOTE | 2021-07-17 06:24 | P.PN ---
Date of Service: 07/17/21 Subjective: Weaned off pressors overnight, oxygenation improved Chest x-ray without any new/worsening of pneumothorax Chest tube remains in place No she reported dark output from NG tube. Hemoccult positive Bruising from site of initiated catheter placements subcutaneous chest ROS: Unable to be obtained, intubated/sedated Physical exam GEN: Sedated, paralyzed HEENT: ETT in place, normal conjunctiva CV: Regular rate and rhythm, trace pedal/hip edema Pulm: On mechanical ventilation, subcutaneous emphysema ABD: Soft, nondistended Integumentary: Oozing of blood from upper chest at site of pressure catheter placement Neuro: paralyzed, sedated Problem List Acute hypoxemic respiratory failure secondary to COVID-19 pneumonia Right pneumothorax s/p chest tube placement 07/15 Subcutaneous emphysema KARLO Menorrhagia Morbid obesity Possible GI bleed Patient with significant oxygen requirement and hypoxia. Required intubation in the morning of 07/15 Right-sided pneumothorax, chest tube placed morning of 07/15, central line placed as well Severe subcutaneous emphysema, ER provider overnight/lime kiln operator 07/16 placed fenestrated catheter subcutaneously to relieve some of the air with improvement, slight oozing from left side No new pneumothorax, right-sided pneumothorax is stable, chest tubes in place Pulmonology consulted. continue baricitinib Continue steroids, vitamin supplementation, trend inflammatory markers ABG with slight improvement Currently patient to continue with full code, family to further discuss CODE STATUS KARLO likely secondary to ATN, either from hypoxemia and hypotension. Patient does appear dry on exam, may benefit from some gentle fluids, nephrology consulted Start 50 cc/hour normal saline today Anticoagulation discontinued for possible GI bleed Pulmonology started patient on IV Pepcid, recommend starting tube feeds Dispo: Guarded prognosis. Continue ICU level of care Discussed with sister yesterday, patient's oldest daughter is coming in from out of state today/tonight. Tentatively planning for family meeting tomorrow early afternoon Time Spent Managing Pts Care (In Minutes): 35
[2021-07-17 06:33] LABS: Arterial Blood Carboxyhemoglob 1.1 % (0-1.5); Blood Gas Oxyhemoglobin 90.3 % (94-97); Blood O2 Saturation 92.3 % (92-98.5)
[2021-07-17] MEDS ORDERED: dexAMETHasone 10 MG/ML VIAL ONE ×2 (06:33→16:09)
[2021-07-17] MEDS: CISATRACURIUM BESYLATE 40 MG in NA CHLORIDE 0.9% 80 ML IV PRN (06:36)
[2021-07-17] MEDS: NA CHLORIDE 0.9% 1,000 ML IV SCH ×2 (07:00→23:52)
[2021-07-17] MEDS: INSULIN -REGULAR HUMAN 50 UNIT/0.5 ML ML SQ SCH ×5 (07:30→22:51)
--- NOTE | 2021-07-17 07:34 | RAD REPORT ---
EXAM DESCRIPTION: RAD - Chest Single View - 07/17/2021 5:24 am CLINICAL HISTORY: resp failure COMPARISON: Portable July 16 studies TECHNIQUE: AP portable chest image was obtained 07/17/2021 5:24 am . FINDINGS: Motion and film technique limitations are present. Interstitial and alveolar bilateral lung parenchymal opacification pattern appears to have improved s tisha July 16. Significant opacification remains. There may be some slight improvement. The extensiv e subcutaneous emphysema pattern has improved. Heart size and vasculature are stable. Trachea remains in the midline. Endotracheal tube remains in place with the tip mid aortic arch 3.5 cm above the aide. NG tube is c urled in the stomach. Right-sided chest tube unchanged in position. No measurable pneumothorax on this study. Anterior pneumothorax can be occult on a portable examinat ion. IMPRESSION: Partial clearing of the bilateral airspace opacification pattern with significant lung p arenchymal disease remaining. No identifiable right-sided pneumothorax. An anterior pneumothorax can be occult on a portable examin ation. Stable positioning of the ET tube and NG tube. Partial resolution of the extensive subcutaneous emphysema.
[2021-07-17] MEDS ORDERED: INSULIN -REGULAR HUMAN 50 UNIT/0.5 ML ML ONE ×2 (08:59→17:43)
[2021-07-17] MEDS ORDERED: BARICITINIB 2 MG TABLET PO SCH (09:00)
[2021-07-17] MEDS: ASPIRIN EC 81 MG TAB PO SCH (09:00)
[2021-07-17] MEDS: FAMOTIDINE 20 MG/2 ML VIAL IV SCH (09:00)
[2021-07-17] MEDS: APIXABAN 2.5 MG TABLET PO SCH (09:00)
[2021-07-17] MEDS ORDERED: THIAMINE HCL 100 MG TABLET ONE (09:02)
[2021-07-17] MEDS ORDERED: ASPIRIN 81 MG CHEWABLE TABLET ONE (09:02)
[2021-07-17] MEDS ORDERED: ASCORBIC ACID 500 MG TABLET ONE (09:02)
[2021-07-17] MEDS ORDERED: APIXABAN 5 MG TABLET ONE (09:02)
[2021-07-17] MEDS ORDERED: NA CHLORIDE 0.9% 1,000 ML ONE (09:03)
[2021-07-17] MEDS ORDERED: FAMOTIDINE 20 MG/2 ML VIAL IV ONE (09:03)
--- NOTE | 2021-07-17 10:28 | P.PN ---
Subjective Date of Service: 07/17/21 Chief Complaint: Resp failure Oxygenation improving patient is on paralytics and propofol Review of Systems is unable to be obtained Physical Examination - Vital Signs Temperature: 98.0 F Blood Pressure: 112/70 Pulse: 105 Respirations: 28 Pulse Ox (%): 94 - Physical Exam General: Unresponsive Respiratory: Diminished (Extensive subcutaneous emphysema) Cardiovascular: Normal S1 S2, Edema Assessment & Plan - Problems (Diagnosis) (1) Acute respiratory failure due to COVID-19 Current Visit: Yes Status: Acute Plan: Respiratory failure condition is improving oxygenation improving may have GI bleed will DC anticoagulation for now Daily weaning from paralytic drugs red ucing dose of propofol subcutaneous emphysema has improved may start tube feeds White count elevated renal function is slightly worse chest x-ray reviewed no pneumothorax chest tube not functioning is no titling or any air leak still 100% FiO2 slight decline in hemoglobin right now we will start her patient on Lovenox
--- NOTE | 2021-07-17 12:20 | RAD REPORT ---
EXAM DESCRIPTION: RAD - Chest Single View - 07/17/2021 12:12 pm CLINICAL HISTORY: check for DOBHOFF placement COMPARISON: Portable chest July 17, portable chest July 16, CT chest July 13 TECHNIQUE: AP portable chest image was obtained 07/17/2021 12:12 pm along with portable exam of the up per abdomen. FINDINGS: ET tube remains mid aortic arch level. Extensive lung parenchymal opacification is present unchanged from examination earlier in the day. Subcutaneous emphysema pattern also unchanged. NG/OG tube has been placed. Tip is in the distal stomach. Feeding tube is also been placed. Tip is in the midline upper abdomen below the diaphragm in the proximal most portion of the stomach IMPRESSION: Feeding tube placement with the tip below the diaphragm in the midline upper abdomen. Th is would correspond to the proximal most portion of the stomach. NG/ OG tube in place curled in the medial right upper quadrant. Tip is in the antrum or distal stomac h.
--- NOTE | 2021-07-17 12:33 | P.PN ---
Subjective Date of Service: 07/17/21 Chief Complaint: Resp failure Subjective: Improving (off pressors, remains intubated, critically ill) Physical Examination - Vital Signs Temperature: 98.0 F Blood Pressure: 112/70 Pulse: 105 Respirations: 28 Pulse Ox (%): 94 - Physical Exam General: Unresponsive Respiratory: Other (RIGHT chest tube in place, + subQ emphysema remains) Assessment And Plan - Plan - continue supportive care - chest tube to remain in place on suction - needles in place for subcutaneous emphysema - patient remains crititally ill with covid pneumonia
--- NOTE | 2021-07-17 13:37 | RAD REPORT ---
EXAM DESCRIPTION: RAD - Abdomen 1 View (KUB) - 07/17/2021 1:29 pm CLINICAL HISTORY: dobbhoff placement COMPARISON: Chest Single View dated 07/17/2021 FINDINGS: Nonobstructive bowel gas pattern. No acute osseous abnormality.Visualized lungs are unrema rkable.No abnormal calcifications. OG and weighted feeding tube overlies the stomach. Right-sided maykel st tube is partially imaged. IMPRESSION: Weighted feeding tube and NG/OG tube overlying the stomach.
[2021-07-17] MEDS ORDERED: SODIUM CHLORIDE 0.9% 10ML INJ IV PRN ×2 (15:02→17:58)
[2021-07-17] MEDS ORDERED: PANTOPRAZOLE 40 MG INJ IVP ONE (17:58)
[2021-07-17] MEDS ORDERED: AA 5%/D20W/ELECTROLYTES-TPN 2,000 ML, Lipids 20% 250 ML with MULTIVITAMINS INJ 10 ML IV SCH ×6 (18:00)
[2021-07-17] MEDS: PANTOPRAZOLE INJ 80 MG in NA CHLORIDE 0.9% 250 ML IV SCH (18:00)
[2021-07-17] MEDS ORDERED: PANTOPRAZOLE 40 MG INJ ONE (19:34)
[2021-07-17] MEDS ORDERED: PANTOPRAZOLE 40 MG INJ IVP SCH (21:00)
--- NOTE | 2021-07-17 21:19 | P.PN ---
Date of Service: 07/17/21 Vital Signs Temp Pulse Resp BP Pulse Ox 97.2 F 94 H 22 H 121/62 92 07/17/21 18:00 07/17/21 18:00 07/17/21 18:00 07/17/21 18:00 07/17/21 18:00 Medications Acetaminophen (Acetaminophen 500 Mg Tab) 500 mg PO Q4HP PRN PRN Reason: TEMP > 100' F Benzonatate (Benzonatate 100 Mg Cap) 100 mg PO TID PRN PRN Reason: COUGH Chlorphenir/Hydrocodone Polistirex (Hydrocodone/Chlorphen 5 Ml/Osyr) 5 ml PO BID PRN PRN Reason: COUGH Dexamethasone (Dexamethasone 10 Mg/Ml Vial) 10 mg IV Q12H [facility] Last Admin: 07/17/21 16:00 Dose: 10 mg Documented by: Enoxaparin Sodium (Enoxaparin 40 Mg/0.4 Ml) 40 mg SQ DAILY [facility] Fentanyl Citrate (Fentanyl Citr 100 Mcg/2 Ml) 25 mcg IV Q4HP PRN PRN Reason: Pain scale 8-10 (Severe) Last Admin: 07/15/21 11:34 Dose: 25 mcg Documented by: Haloperidol Lactate (Haloperidol Lact 5 Mg/Ml Inj) 2 mg IV Q4HP PRN PRN Reason: AGITATION Propofol (Diprivan) 1,000 mg in 100 mls @ 0 mls/hr IV PRN PRN; Protocol PRN Reason: 1st Choice Ventilator Sedation Last Admin: 07/17/21 02:54 Dose: 100 mls Documented by: Sodium Chloride (Sodium Chloride) 250 mls @ 999 mls/hr IV Q15M PRN PRN Reason: HYPOTENSION Cisatracurium Besylate 40 mg/ (Sodium Chloride) 100 mls @ 0 mls/hr IV PRN PRN; Protocol PRN Reason: NEUROMUSCULAR BLOCKAGE Last Admin: 07/17/21 06:36 Dose: 100 mls Documented by: Norepinephrine Bitartrate 4 mg (/ Dextrose) 254 mls @ 3.81 mls/hr IV TITR ANNE-MARIE; Protocol Last Titration: 07/16/21 12:00 Dose: 0 mcg/min, 0 mls/hr Documented by: Sodium Chloride (Ns 1000 Ml Ivbag) 1,000 mls @ 50 mls/hr IV .Q20H [facility] Last Admin: 07/17/21 07:00 Dose: 1,000 mls Documented by: Amino Acids/Electrolytes (Clinimix E 5%-20% Solution) 2,260 mls @ 70 mls/hr IV [id number]@1700 [facility] Multivitamins 10 ml/ Amino Acids/Electrolytes/ Fat Emulsion Intravenous 2,260 mls @ 70 mls/hr IV [id number]@1700 [facility] Last Admin: 07/17/21 18:00 Dose: 2,260 mls Documented by: Pantoprazole Sodium 80 mg/ (Sodium Chloride) 250 mls @ 25 mls/hr IV Q10H [facility]; Protocol Last Admin: 07/17/21 18:00 Dose: 250 mls Documented by: Insulin Human Regular (Insulin -Regular Human 50 Unit/0.5 Ml Ml) 0 unit SQ ACHS [facility]; Protocol Last Admin: 07/17/21 16:30 Dose: 4 unit Documented by: Lorazepam (Lorazepam 2 Mg/Ml Vial) 2 mg IV Q2HP PRN PRN Reason: Sedation-Propofol not effect Midazolam HCl (Midazolam Hcl 2 Mg/2 Ml Inj) 2 mg IV Q2HP PRN PRN Reason: Sedation-Propofol not effect Last Admin: 07/15/21 10:23 Dose: 2 mg Documented by: Nutritional Formula (Vital Hp 1,000 Ml Bot) 0 ml RTH CONT [facility] Ondansetron HCl (Ondansetron 4 Mg/2 Ml Vial) 4 mg IV Q6HP PRN PRN Reason: NAUSEA / VOMITING Sodium Chloride (Flush Normal Saline 10 Ml) 10 ml IV BID [facility] Last Admin: 07/17/21 09:00 Dose: 10 ml Documented by: Sodium Chloride (Sodium Chloride 0.9% 10ml Inj) 10 ml IV UD PRN PRN Reason: Diluant Sodium Chloride (Sodium Chloride 0.9% 10ml Inj) 10 ml IV UD PRN PRN Reason: Diluant Microbiology Results 07/12/21 22:25 Blood - Blood Aerobic Blood Culture - Preliminary No growth in 24 hours. 07/12/21 22:25 Blood - Blood Anaerobic Blood Culture - Preliminary No growth in 24 hours. 07/12/21 22:10 Blood - Blood Aerobic Blood Culture - Preliminary No growth in 24 hours. 07/12/21 22:10 Blood - Blood Anaerobic Blood Culture - Preliminary No growth in 24 hours. Assessment/ Plan: Nephrology Limited IH/ ROS due to unresponsiveness. Percutaneous subcutaneous emphysema. Vitals, medications, blood work and imaging reviewed in the chart General: Unresponsive. Obese. HEENT: Atraumatic Neck: Supple Respiratory: Clear to auscultation bilaterally. Hip edema. Cardiovascular: No edema, Regular rate/rhythm Gastrointestinal: Non-distended, No guarding Musculoskeletal: No clubbing, No contractures Integumentary: No rashes, No cyanosis Neurological: Abnormal speech [place]uerte with medium urine. Greater than 30min patient care. Blood work reviewed in the chart. Imagings Data: EXAM DESCRIPTION: RAD - Chest Single View - 07/15/2021 8:19 am CLINICAL HISTORY: s/p chest tube COMPARISON: Chest Single View dated 07/15/2021; Chest Single View dated 07/15/2021; Chest Single View dated 07/12/2021 FINDINGS: Interval chest tube placement with tip near the mediastinum and no appreciable residual pneumothorax. Increasing subcutaneous emphysema. IMPRESSION: No appreciable residual pneumothorax following chest tube placement. Increasing subcutaneous emphysema. EXAM DESCRIPTION: CT - Chest For Pe Angio - 07/13/2021 6:16 am CLINICAL HISTORY: DYSPNEA. COMPARISON: None. TECHNIQUE: CTA of the chest was performed following intravenous administration of iodinated contrast. Axial soft tissue and lung window, and coronal and sagittal soft tissue window reconstructions were created and sent to PACS. 3D postprocessing was performed on an independent workstation, with images sent to PACS for subsequent review. This exam was performed according to our departmental dose-optimization program, which includes automated exposure control, adjustment of the mA and/or kV according to patient size and/or use of iterative reconstruction technique. FINDINGS: Suboptimal exam due to mild streak artifact from patient body habitus. Vascular: The pulmonary arteries are adequately opacified to the segmental level. No CT evidence of acute pulmonary thromboembolism. No evidence of aortic aneurysm or dissection. Lungs and pleura: Moderate streaky pulmonary opacities with associated interstitial thickening and groundglass opacities throughout both lungs. No pleural effusion. No pneumothorax. Mediastinum and neck: Mild mediastinal and bilateral hilar lymphadenopathy. Unremarkable appearance of the thyroid gland. Cardiac: No cardiomegaly or pericardial effusion. Abdomen: Hepatic steatosis. Musculoskeletal: No concerning osseous abnormality. IMPRESSION: 1. No CTA evidence of acute pulmonary thromboembolism. 2. Moderate pulmonary opacities and interstitial thickening, concerning for infectious/inflammatory process. 3. Mild mediastinal and bilateral hilar lymphadenopathy, likely reactive. 4. Hepatic steatosis. Conclusions/Impression: KARLO likely ATN in the setting of hypotension/ hypoxemia CKD III with proteinuria -No NSAIDs -Continue gentle IVF Hyponatremia -Continue furosemide Hypocalcemia -Continue Vitamin D3 DM II with CKD -RISS Moderate malnutrition -Advance tube feeds as tolerated COVID-19 PNA Acute hypoxic respiratory failure complicated by a PTX -Continue Zinc and Vitamin C -Continue decadron -Continue chest tube -Intubated. Continue ventilatory support. Septic shock -Continue Levophed Case reviewed with Dr. Winston
[2021-07-17] MEDS ORDERED: D50W 25 GM/50 ML SYRINGE IV PRN (22:45)
[2021-07-17] MEDS ORDERED: GLUCAGON 1 MG/VIAL IM PRN (22:45)
[2021-07-18] MEDS: CISATRACURIUM BESYLATE 40 MG in NA CHLORIDE 0.9% 80 ML IV PRN ×2 (00:28→09:45)
[2021-07-18] MEDS: PANTOPRAZOLE INJ 80 MG in NA CHLORIDE 0.9% 250 ML IV SCH ×2 (03:00→14:52)
[2021-07-18 05:16] LABS: Absolute Lymphocytes (CBC) 2.1 K/uL (0.7-4.9); Hematocrit 25.7 % (36.0-45.0); Lymphocytes % 7.8 % (15.3-44.8); MPV 9.1 fL (7.6-11.3); RBC Red Blood Cell Count 2.84 M/uL (3.86-4.86)
[2021-07-18] MEDS ORDERED: INSULIN GLARGINE 100 UNIT/ML SQ SCH ×2 (05:25→09:00)
[2021-07-18] MEDS: dexAMETHasone 10 MG/ML VIAL IV SCH ×2 (05:38→16:57)
[2021-07-18] MEDS: INSULIN -REGULAR HUMAN 50 UNIT/0.5 ML ML SQ SCH ×2 (05:39→11:54)
[2021-07-18 05:42] LABS: Blood Gas Oxyhemoglobin 87.1 % (94-97); Blood O2 Saturation 89.7 % (92-98.5)
[2021-07-18 05:51] LABS: Albumin 1.8 g/dL (3.4-5.0); Bilirubin Total 0.3 mg/dL (0.2-1.0); C-Reactive Protein 13.9 mg/L (<3.00); Potassium 4.5 mmol/L (3.5-5.1); Protein, Total 5.8 g/dL (6.4-8.2)
[2021-07-18 05:56] LABS: Urine Appearance CLOUDY (Clear); Urine Bilirubin NEGATIVE (Negative); Urine Blood 2+ (Negative); Urine Color YELLOW (Yellow); Urine Glucose 3+ (Negative); Urine Protein TRACE (Negative); Urine Specific Gravity 1.025 (1.005-1.030); Urine pH 5.5 (5.0-7.0)
[2021-07-18 06:15] LABS: Urine Bacteria LOADED /HPF (<20); Urine Mucus 2+ /HPF (NONE SEEN)
[2021-07-18 06:19] LABS: Magnesium 3.2 mg/dL (1.8-2.4); Phosphorus 3.1 mg/dL (2.5-4.9)
[2021-07-18] MEDS: propofoL 1,000 MG/100 ML VIAL IV PRN ×4 (06:26→20:48)
[2021-07-18] MEDS: ENOXAPARIN 40 MG/0.4 ML SQ SCH (09:08)
--- NOTE | 2021-07-18 10:22 | P.PN ---
Subjective Date of Service: 07/18/21 Chief Complaint: Resp failure No change still very hypoxic on paralytics Review of Systems is unable to be obtained Physical Examination - Vital Signs Temperature: 97.3 F Blood Pressure: 95/50 Pulse: 88 Respirations: 28 Pulse Ox (%): 90 - Physical Exam General: Unresponsive Respiratory: Diminished, Other (Significant subcutaneous emphysema) Cardiovascular: Regular rate/rhythm, Edema - Studies Microbiology Data (last 24 hrs): 07/12/21 22:25 Blood - Blood Aerobic Blood Culture - Final No growth in 5 days. 07/12/21 22:25 Blood - Blood Anaerobic Blood Culture - Final No growth in 5 days. 07/12/21 22:10 Blood - Blood Aerobic Blood Culture - Final No growth in 5 days. 07/12/21 22:10 Blood - Blood Anaerobic Blood Culture - Final No growth in 5 days. Assessment & Plan - Problems (Diagnosis) (1) Acute respiratory failure due to COVID-19 Current Visit: Yes Status: Acute Plan: Respiratory failure prognosis poor he is on high concentrations of oxygen chest x-ray endotracheal tube satisfactory position no evidence of further bleeding tube feeds renal function is worse White count elevated but discussed with relatives regarding DNR labs reviewed
--- NOTE | 2021-07-18 10:56 | P.PN ---
Subjective Date of Service: 07/18/21 Chief Complaint: Resp failure Subjective: No new changes Physical Examination - Vital Signs Temperature: 97.3 F Blood Pressure: 95/50 Pulse: 88 Respirations: 28 Pulse Ox (%): 90 - Physical Exam General: Unresponsive, Comatose Respiratory: Diminished, Other (RIGHT chest tube in place, remains on suction, functional.) - Studies Microbiology Data (last 24 hrs): 07/12/21 22:25 Blood - Blood Aerobic Blood Culture - Final No growth in 5 days. 07/12/21 22:25 Blood - Blood Anaerobic Blood Culture - Final No growth in 5 days. 07/12/21 22:10 Blood - Blood Aerobic Blood Culture - Final No growth in 5 days. 07/12/21 22:10 Blood - Blood Anaerobic Blood Culture - Final No growth in 5 days. Assessment And Plan - Plan - continue supportive care - chest tube to remain in place on suction, reviewed chest x-ray, chest tube remains place, will continue daily chest x rays - needles in place for subcutaneous emphysema removed - patient remains crititally ill with covid pneumonia
--- NOTE | 2021-07-18 11:41 | RAD REPORT ---
EXAM DESCRIPTION: RAD - Chest Single View - 07/18/2021 11:21 am CLINICAL HISTORY: Covid Pneumonia Chest pain. COMPARISON: Chest Single View dated 07/18/2021; Abdomen 1 View (KUB) dated 07/17/2021; Chest Single View dated 07/17/2021; Abdomen 1 View (KUB) dated 07/17/2021 FINDINGS: Portable technique limits examination quality. Tip of the endotracheal tube is at the level of the aortic arch. Enteric tube descends into the stoma ch. Right-sided PICC line is unchanged in position. There is extensive subcutaneous emphysema again s een. Moderate bilateral pulmonary opacities appear stable since prior study.The heart is normal in si ze.
--- NOTE | 2021-07-18 13:46 | P.PN ---
Date of Service: 07/18/21 Pt seen and examined remains intubated on 100% Fi02 started on trickle feeds Vitals labs and meds reviewed Acetaminophen (Acetaminophen 500 Mg Tab) 500 mg PO Q4HP PRN PRN Reason: TEMP > 100' F Benzonatate (Benzonatate 100 Mg Cap) 100 mg PO TID PRN PRN Reason: COUGH Chlorphenir/Hydrocodone Polistirex (Hydrocodone/Chlorphen 5 Ml/Osyr) 5 ml PO BID PRN PRN Reason: COUGH Dexamethasone (Dexamethasone 10 Mg/Ml Vial) 10 mg IV Q12H [facility] Last Admin: 07/18/21 05:38 Dose: 10 mg Documented by: Dextrose (D50w 25 Gm/50 Ml Syringe) 12.5 gm IV PRN PRN PRN Reason: HYPOGLYCEMIA Enoxaparin Sodium (Enoxaparin 40 Mg/0.4 Ml) 40 mg SQ DAILY [facility] Last Admin: 07/18/21 09:08 Dose: 40 mg Documented by: Fentanyl Citrate (Fentanyl Citr 100 Mcg/2 Ml) 25 mcg IV Q4HP PRN PRN Reason: Pain scale 8-10 (Severe) Last Admin: 07/15/21 11:34 Dose: 25 mcg Documented by: Glucagon (Glucagon 1 Mg/Vial) 1 mg IM 1X PRN PRN Reason: HYPOGLYCEMIA Haloperidol Lactate (Haloperidol Lact 5 Mg/Ml Inj) 2 mg IV Q4HP PRN PRN Reason: AGITATION Propofol (Diprivan) 1,000 mg in 100 mls @ 0 mls/hr IV PRN PRN; Protocol PRN Reason: 1st Choice Ventilator Sedation Last Admin: 07/18/21 11:18 Dose: 100 mls Documented by: Sodium Chloride (Sodium Chloride) 250 mls @ 999 mls/hr IV Q15M PRN PRN Reason: HYPOTENSION Cisatracurium Besylate 40 mg/ (Sodium Chloride) 100 mls @ 0 mls/hr IV PRN PRN; Protocol PRN Reason: NEUROMUSCULAR BLOCKAGE Last Admin: 07/18/21 09:45 Dose: 100 mls Documented by: Norepinephrine Bitartrate 4 mg (/ Dextrose) 254 mls @ 3.81 mls/hr IV TITR [facility]; Protocol Last Titration: 07/16/21 12:00 Dose: 0 mcg/min, 0 mls/hr Documented by: Sodium Chloride (Ns 1000 Ml Ivbag) 1,000 mls @ 50 mls/hr IV .Q20H [facility] Last Admin: 07/17/21 23:52 Dose: 1,000 mls Documented by: Amino Acids/Electrolytes (Clinimix E 5%-20% Solution) 2,260 mls @ 70 mls/hr IV [id number]@1700 [facility] Multivitamins 10 ml/ Amino Acids/Electrolytes/ Fat Emulsion Intravenous 2,260 mls @ 70 mls/hr IV [id number]@1700 [facility] Last Admin: 07/17/21 18:00 Dose: 2,260 mls Documented by: Pantoprazole Sodium 80 mg/ (Sodium Chloride) 250 mls @ 25 mls/hr IV Q10H [facility]; Protocol Insulin Human Regular 100 unit (/ Sodium Chloride) 100 mls @ 0 mls/hr IV CONT [facility]; Protocol Insulin Glargine (Insulin Glargine 100 Unit/Ml) 15 unit SQ DAILY [facility] Last Admin: 07/18/21 05:38 Dose: 15 unit Documented by: Lorazepam (Lorazepam 2 Mg/Ml Vial) 2 mg IV Q2HP PRN PRN Reason: Sedation-Propofol not effect Midazolam HCl (Midazolam Hcl 2 Mg/2 Ml Inj) 2 mg IV Q2HP PRN PRN Reason: Sedation-Propofol not effect Last Admin: 07/15/21 10:23 Dose: 2 mg Documented by: Nutritional Formula (Vital Hp 1,000 Ml Bot) 0 ml RTH CONT [facility] Ondansetron HCl (Ondansetron 4 Mg/2 Ml Vial) 4 mg IV Q6HP PRN PRN Reason: NAUSEA / VOMITING Sodium Chloride (Flush Normal Saline 10 Ml) 10 ml IV BID [facility] Last Admin: 07/18/21 09:08 Dose: 10 ml Documented by: Sodium Chloride (Sodium Chloride 0.9% 10ml Inj) 10 ml IV UD PRN PRN Reason: Diluant Sodium Chloride (Sodium Chloride 0.9% 10ml Inj) 10 ml IV UD PRN PRN Reason: Diluant Temp Pulse Resp BP Pulse Ox 97.3 F 88 28 H 95/50 L 90 L 07/18/21 10:56 07/18/21 10:56 07/18/21 10:56 07/18/21 10:56 07/18/21 10:56 Gen : intubated and sedated HEENT : atraumatic Lung : diminished overall sub cutanenous emphysema noted KARLO likely ATN in the setting of hypotension/ hypoxemia CKD III with proteinuria -No NSAIDs -Continue gentle IVF Hyponatremia -off lasix monitor Hypocalcemia -Continue Vitamin D3 DM II with CKD -RISS will need to add long acting insulin Moderate malnutrition -Advance tube feeds as tolerated COVID-19 PNA Acute hypoxic respiratory failure complicated by a PTX -Continue Zinc and Vitamin C -Continue decadron -Continue chest tube -Intubated. Continue ventilatory support. Septic shock -Continue Levophed
[2021-07-18] MEDS: INSULIN -REGULAR HUMAN 100 UNIT in NA CHLORIDE 0.9% 100 ML IV SCH (14:52)
--- NOTE | 2021-07-18 14:53 | P.PN ---
Date of Service: 07/18/21 Subjective: Blood pressure remains soft, off pressors Oxygenation in the low 90s, in the ED Chest tube stable No pneumothorax Subcutaneous emphysema appears stable Urine output improved ROS: Unable to be obtained, intubated/sedated Physical exam GEN: Sedated, paralyzed HEENT: ETT in place, normal conjunctiva CV: Regular rate and rhythm, trace pedal/hip edema Pulm: On mechanical ventilation, subcutaneous emphysema ABD: Soft, nondistended Integumentary: no rash, L dorsal foot slightly cool to touch relative to rest of lower extremity Neuro: paralyzed, sedated Problem List Acute hypoxemic respiratory failure secondary to COVID-19 pneumonia Right pneumothorax s/p chest tube placement 07/15 Subcutaneous emphysema KARLO Menorrhagia Morbid obesity Possible GI bleed Patient with significant oxygen requirement and hypoxia. Required intubation in the morning of 07/15 Right-sided pneumothorax, chest tube placed morning of 07/15, central line placed as well Severe subcutaneous emphysema, ER provider overnight/internet cafe manager 07/16 placed fenestrated catheter subcutaneously to relieve some of the air with improvement, slight oozing from left side No new pneumothorax, right-sided pneumothorax is stable, chest tube in place Pulmonology consulted. Continue steroids, trend inflammatory markers Had a long family discussion with patient's brother, sister, 2 daughters, all agree that patient would want to be DNR at this point KARLO likely secondary to ATN, either from hypoxemia and hypotension. Patient did appear dry on exam, continuee gentle fluids, nephrology consulted Anticoagulation discontinued for possible GI bleed, dc'd oral meds on 07/17 Protonix drip on 07/17, TPN started 07/17 Pulmonology recommends initiation of tube feeds on 07/18 Obtain venous and arterial Dopplers of lower extremities Dispo: Guarded prognosis. Continue ICU level of care Family meeting held on 07/18, with sister, brother, 2 daughters. Patient changed to DNR Time Spent Managing Pts Care (In Minutes): 35
--- NOTE | 2021-07-18 15:32 | RAD REPORT ---
EXAM DESCRIPTION: Chest Single View CLINICAL HISTORY: 56 years Female ETT repositioned COMPARISON: 07/17/2021. FINDINGS: The aide is not optimally visualized. The endotracheal tube tip appears to be approximat jose alberto 1.5 cm above the aide. The NG tube extends into the stomach. Stable right chest tube. Overlying monitoring devices. There is pneumomediastinum and extensive subcutaneous emphysema similar compared to the prior study. No definite pneumothorax. There are similar lung opacities most pronounced at the left lung base. IMPRESSION: 1. The aide is not optimally visualized. The endotracheal tube tip is estimated to b e approximately 1.5 cm above the aide. 2. Additional findings not significantly changed compared to the prior study. Electronically signed by: Jesus Davila MD 07/18/2021 12:40 AM MELTER LOADER Due to temporary technical issues with the PACS/Fluency reporting system, reports are being signed by the in house radiologist without review as a courtesy to ensure prompt reporting. The interpreting r adiologist is fully responsible for the content of the report.
--- NOTE | 2021-07-18 16:31 | RAD REPORT ---
EXAM DESCRIPTION: Abdomen 1 View (KUB) 07/17/2021 11:31 PM SUPERINTENDENT [employer]ITATION CLINICAL HISTORY: 56 years, Female, ck dobhoff placement COMPARISON: None. FINDINGS: 1 X-ray view of the abdomen (supine) was performed. There is a feeding tube tip of the cat heter within the antrum of the stomach in good position. The gas pattern is nondiagnostic. No signs of ileus or obstruction is demonstrated. No areas of abnormal calcifications were identified in ei ther renal fossa no evidence for organomegaly. Probably right common femoral artery central line. Bon y structures demonstrate be unremarkable. IMPRESSION: Feeding tube in good position. Electronically signed by: Harsha Moody MD 07/17/2021 11:32 PM [employer]IT[employer] Due to temporary technical issues with the PACS/Fluency reporting system, reports are being signed by the in house radiologist without review as a courtesy to ensure prompt reporting. The interpreting r adiologist is fully responsible for the content of the report.
--- NOTE | 2021-07-18 16:36 | RAD REPORT ---
EXAM DESCRIPTION: US - Extrem Venous W Compress Gustavo - 07/18/2021 4:08 pm CLINICAL HISTORY: LLE cooler when compared to rihgt Bilateral leg edema and swelling. COMPARISON: No comparisons TECHNIQUE: Real-time sonographic interrogation of the left and right lower extremity deep venous sys tems was performed. FINDINGS: Normal compressibility, flow augmentation, phasic flow and spontaneous flow is identified in both the left and right lower extremity deep venous systems. IMPRESSION: No sonographic evidence of left or right lower extremity deep venous thrombosis.
--- NOTE | 2021-07-18 16:38 | RAD REPORT ---
EXAM DESCRIPTION: US - Lower Extremity Arterial Bilat - 07/18/2021 4:08 pm CLINICAL HISTORY: Evaluate flow of BLE Leg pain, claudication COMPARISON: No comparisons TECHNIQUE: Bilateral lower extremity arterial Doppler examination was performed with yvonne sepulveda FINDINGS: Examination is very limited due to patient's clinical status. The visualized bilateral lower extremity arterial systems show predominantly triphasic and biphasic w aveforms. There is no high-grade stenosis or occlusion seen bilaterally. IMPRESSION: Extremely limited study without gross evidence of a high-grade stenosis or occlusion.
--- NOTE | 2021-07-18 16:41 | RAD REPORT ---
EXAM DESCRIPTION: ADDENDUM #1 THIS REPORT CONTAINS FINDINGS THAT MAY BE CRITICAL TO PATIENT CARE: Called, telephoned, verbal repo rt was given oral to Dr. Eladio Wisdom at 11:39 PM JOINT YARNER on 07/17/2021. Electronically signed by: Harsha Moody MD 07/17/2021 11:45 PM JOINT YARNER End of Addendum EXAM DESCRIPTION: Chest Single View 07/17/2021 11:27 PM JOINT YARNER CLINICAL HISTORY: 56 years, Female, ETT replaced COMPARISON: 07/16/2021 FINDINGS: Single view of the chest was obtained portable. Prior films were compared. There has been replacement of the endotracheal tube. Now tip of the endotracheal tube within the right mainstem bron chus, pullback approximately 3.7 cm could be of assistance. Nasogastric tube, right-sided chest tube demonstrate to be unchanged. Diffuse subcutaneous emphysem a as well as pneumomediastinum similar to prior study. No significant residual pneumothorax. The hear t is not enlarged. The thoracic aorta is unremarkable. No significant pleural effusions. The rest of the soft tissue and bony structures demonstrate to be unremarkable. IMPRESSION: Now tip of the endotracheal tube within the right mainstem bronchus, pullback approximat jose alberto 3.7 cm could be of assistance. Diffuse subcutaneous emphysema as well as pneumomediastinum No significant residual pneumothorax. Electronically signed by: Harsha Moody MD 07/17/2021 11:30 PM JOINT YARNER Due to temporary technical issues with the PACS/Fluency reporting system, reports are being signed by the in house radiologist without review as a courtesy to ensure prompt reporting. The interpreting r adiologist is fully responsible for the content of the report.
[2021-07-18] MEDS ORDERED: AA 5%/D20W/ELECTROLYTES-TPN 2,000 ML IV SCH (17:00)
[2021-07-18] MEDS ORDERED: CISATRACURIUM INJECTION 2 MG/ML (10 ML Vial) IV ONE (19:41)
[2021-07-18] MEDS ORDERED: NA CHLORIDE 0.9% 100 ML ONE (19:43)
[2021-07-18] MEDS: NA CHLORIDE 0.9% 1,000 ML IV SCH (19:50)
[2021-07-19] MEDS: PANTOPRAZOLE INJ 80 MG in NA CHLORIDE 0.9% 250 ML IV SCH ×3 (00:15→21:32)
[2021-07-19] MEDS: propofoL 1,000 MG/100 ML VIAL IV PRN ×4 (01:25→22:48)
[2021-07-19] MEDS ORDERED: CISATRACURIUM INJECTION 2 MG/ML (10 ML Vial) IV ONE (01:39)
[2021-07-19] MEDS: CISATRACURIUM BESYLATE 40 MG in NA CHLORIDE 0.9% 80 ML IV PRN ×4 (02:34→22:48)
[2021-07-19] MEDS: dexAMETHasone 10 MG/ML VIAL IV SCH ×3 (04:15→23:00)
--- NOTE | 2021-07-19 05:49 | P.PN ---
Date of Service: 07/19/21 Subjective: No acute events overnight. Patient placed on insulin drip yesterday, TPN weaned and started tube feeds Nursing staff report patient had asystole for approximately 16 seconds earlier this morning Oxygen saturations remained in the mid to high 80s ROS: Unable to be obtained, intubated/sedated Physical exam GEN: Sedated, paralyzed HEENT: ETT in place, normal conjunctiva CV: Regular rate and rhythm, trace pedal/hip edema Pulm: On mechanical ventilation, subcutaneous emphysema along upper chest, neck, face ABD: Soft, nondistended Integumentary: no rash, BLE: warm, well-perfused Neuro: sedated Problem List Acute hypoxemic respiratory failure secondary to COVID-19 pneumonia Right pneumothorax s/p chest tube placement 07/15 Subcutaneous emphysema UTI KARLO Menorrhagia Morbid obesity acute blood loss anemia, suspect possible upper GI bleed / gastritis s/p intubation 1 AM Right-sided pneumothorax, s/p chest tube 07/15 AM, central line placed as well Severe subcutaneous emphysema, ER provider overnight/project management manager 07/16 placed fenestrated catheter subcutaneously to relieve some of the air with improvement. remove secondary to slight bleed and infection risk No new pneumothorax, right-sided pneumothorax is stable, chest tube in place Pulmonology consulted. Continue steroids, trend inflammatory markers 07/18 Had a long family discussion with patient's brother, sister, 2 daughters, all agree that patient would want to be DNR at this point KARLO likely secondary to ATN, either from hypoxemia and hypotension. Patient did appear dry on exam, continue gentle fluids, nephrology consulted. improved Anticoagulation discontinued for possible GI bleed, dc'd oral meds on 07/17 Protonix drip on 07/17, TPN started 07/17 and transitioned to tube feeds on 07/18 per pulm recommendations 1u PRBC ordered for today UA with bacteriuria, start antibiotics from 07/19 Dispo: Guarded prognosis. Continue ICU level of care Family meeting held on 07/18, with sister, brother, 2 daughters. Patient changed to DNR Time Spent Managing Pts Care (In Minutes): 35
[2021-07-19 06:09] LABS: Albumin 1.7 g/dL (3.4-5.0); Bilirubin Total 0.5 mg/dL (0.2-1.0); Magnesium 3.2 mg/dL (1.8-2.4); Potassium 4.5 mmol/L (3.5-5.1)
[2021-07-19 06:13] LABS: MPV 9.3 fL (7.6-11.3); RBC Red Blood Cell Count 2.57 M/uL (3.86-4.86)
[2021-07-19] MEDS ORDERED: NA CHLORIDE 0.9% 250 ML IV SCH (07:00)
[2021-07-19] MEDS: INSULIN -REGULAR HUMAN 100 UNIT in NA CHLORIDE 0.9% 100 ML IV SCH ×2 (08:00→21:31)
[2021-07-19] MEDS: CEFTRIAXONE 1,000 MG in NA CHLORIDE 0.9% 50 ML IVPB SCH ×2 (08:02→08:27)
--- NOTE | 2021-07-19 08:10 | RAD REPORT ---
EXAM DESCRIPTION: [facility] Single View07/19/2021 6:30 am CLINICAL HISTORY: Respiratory failure COMPARISON: July 18 FINDINGS: Lines and tubes remain in good position. Extensive subcutaneous emphysema has mildly improved. Diffuse bilateral pulmonary opacities are unchanged. A pneumothorax is not seen
[2021-07-19] MEDS: ENOXAPARIN 40 MG/0.4 ML SQ SCH (09:00)
--- NOTE | 2021-07-19 10:47 | P.PN ---
Subjective Date of Service: 07/19/21 Chief Complaint: Resp failure No change respiratory failure maximum oxygen subcutaneous emphysema worse able to tolerate being off paralytic no air leak Review of Systems is unable to be obtained Physical Examination - Vital Signs Temperature: 98.2 F Blood Pressure: 129/70 Pulse: 97 Respirations: 25 Pulse Ox (%): 88 - Physical Exam General: Unresponsive Respiratory: Other (Extensive subcutaneous emphysema) Cardiovascular: Edema Assessment & Plan - Problems (Diagnosis) (1) Acute respiratory failure due to COVID-19 Current Visit: Yes Status: Acute Plan: Respiratory failure prognosis very poor worsening subcutaneous emphysema off vasopressors 100% FiO2 renal function has improved hemoglobin 7.5 no further evidence of GI bleeding urinalysis shows 4+ gram-negative alan prognosis poor unlikely to survive patient is back on tube feeds/no air leak significant subcu taneous emphysema unlikely to survive agree with DNR I have reduced the dose of Decadron
--- NOTE | 2021-07-19 12:57 | P.PN ---
Subjective Date of Service: 07/19/21 Chief Complaint: Resp failure Subjective: No new changes Physical Examination - Vital Signs Temperature: 98.2 F Blood Pressure: 129/70 Pulse: 97 Respirations: 25 Pulse Ox (%): 88 - Physical Exam General: Unresponsive, Comatose HEENT: Normocephalic Respiratory: Diminished, Other (RIGHT chest tube in place, functional, subcutanous emphysema remains significant) Cardiovascular: Other (tachycardia ), Edema Assessment And Plan - Plan - continue supportive care - chest tube to remain in place on suction, reviewed chest x-ray, chest tube remains place, will continue daily chest x rays - needles in place for subcutaneous emphysema removed - patient remains crititally ill with covid pneumonia
--- NOTE | 2021-07-19 13:13 | PN ---
Date of Progress Note: 07/19/2021 Subjective: The patient was seen and examined at bedside. She remains intubated. She is not on any pressors. She is on 100% FiO2 and 15 of PEEP. She is tolerating the tube feeds well. Urine output remains reasonable. Objective: General: She is intubated and sedated. HEENT: Shows atraumatic head. Lungs: Auscultation of lungs revealed bilateral equal air entry with diminished breath sounds overal l. Abdomen: Obese and nontender. Bowel sounds were positive. Extremities: Showed no evidence of edema. Laboratory Data: Laboratory data showing temperature of 98.2, pulse rate of 97, respiratory rate of 25, and blood pressure 129/70. Laboratory data showing blood sugars improving to 200s range. Sodium of 144, potassium of 4.5, chloride of 116, BUN of 69 and creatinine improving to 1.61. Albumin was 1.7, which is about the same as yesterday. CBC showing WBC count of 28,000, hemoglobin of 7.5, hemat ocrit of 23, and platelet count of 617. Chest x-ray findings reviewed. Impression: 1.Acute renal failure secondary to acute tubular necrosis, nonoliguric with good urine output. Crea tinine is trending down. 2.Acute hypoxic respiratory failure secondary to COVID-19 pneumonia. The patient also with right-si ded pneumothorax and chest tube placement. The patient is being monitored by Pulmonary. She also hou s her course complicated by severe subcutaneous emphysema. She remains on steroids and inflammatory markers are being trended. 3.Urinary tract infection. Continue antibiotics. 4.Severe leukocytosis, likely secondary to combination of infection as well as steroid use. 5.Anemia secondary to combination of menorrhagia as well as anemia of chronic disease. Continue tra nsfusion as needed for hemoglobin less than 7 and also for hemodynamic stability. 6.Morbid obesity. 7.Severe debility and weakness. Continue to monitor closely. Plan: Overall, the patient's renal function is improving, but overall prognosis continues to remain poor. She is being aggressively treated for COVID-19 pneumonia as well as antibiotics to treat under lying infection. Blood transfusion p.r.n. and avoid further hypotension and nephrotoxins at this jacqueline e. Follow up on urine output closely. Urine culture preliminary showing gram-negative rods and she is being covered with appropriate antibiotics, which have been dose adjusted for renal function. We will continue to follow up with the patient. Please do not hesitate to call us with any questions or concerns. She remains on DVT prophylaxis of Lovenox. Monitor hemoglobin levels closely. VV/MODJostin Voice ID: [id number] Report ID: [id number]
[2021-07-19] MEDS: NA CHLORIDE 0.9% 1,000 ML IV SCH (18:06)
[2021-07-19 18:09] LABS: Hematocrit 25.4 % (36.0-45.0)
[2021-07-20] MEDS: CISATRACURIUM BESYLATE 40 MG in NA CHLORIDE 0.9% 80 ML IV PRN ×2 (02:49→08:55)
[2021-07-20] MEDS: PANTOPRAZOLE INJ 80 MG in NA CHLORIDE 0.9% 250 ML IV SCH ×2 (03:23→17:41)
[2021-07-20] MEDS: INSULIN -REGULAR HUMAN 100 UNIT in NA CHLORIDE 0.9% 100 ML IV SCH ×2 (04:12→09:31)
[2021-07-20 05:36] LABS: Hematocrit 23.9 % (36.0-45.0); MPV 9.2 fL (7.6-11.3); RBC Red Blood Cell Count 2.68 M/uL (3.86-4.86)
[2021-07-20 06:07] LABS: Albumin 1.4 g/dL (3.4-5.0); Bilirubin Total 0.5 mg/dL (0.2-1.0); Magnesium 2.8 mg/dL (1.8-2.4); Potassium 5.1 mmol/L (3.5-5.1); Protein, Total 5.9 g/dL (6.4-8.2)
--- NOTE | 2021-07-20 06:07 | P.PN ---
Date of Service: 07/20/21 Subjective: Having some sinus pain possibly related to when patient is awake/sedation wearing off and coughing Otherwise no significant changes per nursing, oxygenation slowly worsening, more hypotensive when requiring uptitrating sedatives Family discussion today initially stated they were going to switch patient over to full code, explains current situation, patient remains hypoxemic in the low 80s, has had sinus pauses/asystole After further discussion, family decided to keep patient DNR ROS: Unable to be obtained, intubated/sedated Physical exam GEN: Sedated, paralyzed HEENT: ETT in place, normal conjunctiva CV: Regular rate and rhythm, trace pedal/hip edema Pulm: On mechanical ventilation, subcutaneous emphysema along upper chest, neck, face, L eye > R eye ABD: Soft, nondistended Integumentary: no rash, BLE: warm, well-perfused Neuro: sedated Problem List Acute hypoxemic respiratory failure secondary to COVID-19 pneumonia Right pneumothorax s/p chest tube placement 07/15 Subcutaneous emphysema UTI KARLO Menorrhagia Morbid obesity Steroid-induced hyperglycemia acute blood loss anemia, suspect possible upper GI bleed / gastritis s/p intubation 1 AM Right-sided pneumothorax, s/p chest tube 07/15 AM, central line placed as well Severe subcutaneous emphysema, ER provider overnight/biosecurity officer 07/16 placed fenestrated catheter subcutaneously to relieve some of the air with improvement. removed secondary to slight bleed and infection risk No new pneumothorax, right-sided pneumothorax is stable, chest tube in place Pulmonology consulted. Continue steroids, trend inflammatory markers 07/18 Had a long family discussion with patient's brother, sister, 2 daughters, all agree that patient would want to be DNR at this point 07/20 oldest daughter at bedside, states she had a long discussion with the patient's siblings and patient's other daughter, who stated the patient would want to "continue living for her granddaughter", stating that they would like to change her to full code Explained the situation that the patient is significantly ill, unable to get her oxygenation up, difficult balance with sedatives, avoiding sinus pauses, hypertension/hypotension KARLO likely secondary to ATN, either from hypoxemia and hypotension. Patient did appear dry on exam, continue gentle fluids, nephrology consulted. improved Anticoagulation discontinued for possible GI bleed, dc'd oral meds on 07/17 Protonix drip on 07/17, TPN started 07/17 and transitioned to tube feeds on 07/18 per pulm recommendations 1u PRBC ordered for 07/19, repeat hemoglobin this evening, transfuse for hemoglobin <7 UA with bacteriuria, start antibiotics on 07/19, follow-up urine culture may need to start pressors Dispo: Guarded prognosis. Continue ICU level of care Family meeting held on 07/18, with sister, brother, 2 daughters. Patient changed to DNR 07/20- family initially wanted to change to full code, but after further discussion remained DNR Time Spent Managing Pts Care (In Minutes): 35
--- NOTE | 2021-07-20 07:52 | RAD REPORT ---
EXAM DESCRIPTION: Cece Single View07/20/2021 7:09 am CLINICAL HISTORY: Respiratory failure COMPARISON: July 19, 2021 FINDINGS: No significant change in the bilateral pulmonary opacities, subcutaneous emphysema and pneumomediast inum. There is a probable small right pneumothorax. Lines and tubes in good position. IMPRESSION: Probable small right pneumothorax
[2021-07-20] MEDS: CEFTRIAXONE 1,000 MG in NA CHLORIDE 0.9% 50 ML IVPB SCH (08:19)
[2021-07-20] MEDS ORDERED: CISATRACURIUM INJECTION 2 MG/ML (10 ML Vial) IV ONE (08:35)
[2021-07-20] MEDS ORDERED: HYDROMORPHONE HCL 2 MG/ML inj IV PRN (08:35)
[2021-07-20] MEDS ORDERED: HYDROMORPHONE HCL 2 MG/ML inj ONE (08:41)
[2021-07-20] MEDS: propofoL 1,000 MG/100 ML VIAL IV PRN ×4 (09:05→21:46)
--- NOTE | 2021-07-20 12:48 | P.PN ---
Subjective Date of Service: 07/20/21 Chief Complaint: Resp failure Patient is alert able to respond however she developed significant episodes of bradycardia upon coughing again she has subcutaneous emphysema Review of Systems is unable to be obtained Physical Examination - Vital Signs Temperature: 98.9 F Blood Pressure: 93/51 Pulse: 87 Respirations: 25 Pulse Ox (%): 84 - Physical Exam General: Alert, Cooperative Respiratory: Other (Significant subcutaneous emphysema) Cardiovascular: Edema Assessment & Plan - Problems (Diagnosis) (1) Acute respiratory failure due to COVID-19 Current Visit: Yes Status: Acute Plan: Respiratory failure prognosis poor continues to remain 100% FiO2 significant subcutaneous emphysema and bilateral pneumonia White count is elevated hemoglobin stable possible history of GI bleed tolerating tube feeds changed to cefepime high risk for hospital-acquired infection is no significant air leak from the pneumothorax tracheal tube satisfactory
[2021-07-20] MEDS: CISATRACURIUM BESYLATE 80 MG in NA CHLORIDE 0.9% 160 ML IV PRN ×2 (13:31→18:30)
[2021-07-20] MEDS: dexAMETHasone 10 MG/ML VIAL IV SCH ×2 (13:31→22:06)
[2021-07-20] MEDS ORDERED: WATER IV SCH (14:00)
[2021-07-20] MEDS ORDERED: DEXTROSE 5% IV SCH (14:00)
[2021-07-20] MEDS ORDERED: NOREPINEPHRINE IV SCH (14:00)
[2021-07-20] MEDS ORDERED: NOREPINEPHRINE 8 MG in Dextrose 5%-Water 500 ML IV SCH (15:00)
[2021-07-20] MEDS: NA CHLORIDE 0.9% 1,000 ML IV SCH (15:00)
[2021-07-20] MEDS ORDERED: NA CHLORIDE 0.9% 250 ML ONE (18:11)
[2021-07-20 18:54] LABS: Absolute Lymphocytes (CBC) 2.8 K/uL (0.7-4.9); Hematocrit 24.1 % (36.0-45.0); Lymphocytes % 7.9 % (15.3-44.8); MPV 9.2 fL (7.6-11.3); RBC Red Blood Cell Count 2.68 M/uL (3.86-4.86)
--- NOTE | 2021-07-20 20:47 | P.PN ---
Date of Service: 07/20/21 Vital Signs Temp Pulse Resp BP Pulse Ox 98.9 F 83 25 H 107/53 L 75 L 07/20/21 12:47 07/20/21 18:00 07/20/21 18:00 07/20/21 18:00 07/20/21 18:00 Medications Acetaminophen (Acetaminophen 500 Mg Tab) 500 mg PO Q4HP PRN PRN Reason: TEMP > 100' F Benzonatate (Benzonatate 100 Mg Cap) 100 mg PO TID PRN PRN Reason: COUGH Chlorphenir/Hydrocodone Polistirex (Hydrocodone/Chlorphen 5 Ml/Osyr) 5 ml PO BID PRN PRN Reason: COUGH Dexamethasone (Dexamethasone 10 Mg/Ml Vial) 5 mg IV Q12H [facility] Last Admin: 07/20/21 13:31 Dose: 5 mg Documented by: Dextrose (D50w 25 Gm/50 Ml Syringe) 12.5 gm IV PRN PRN PRN Reason: HYPOGLYCEMIA Enoxaparin Sodium (Enoxaparin 40 Mg/0.4 Ml) 40 mg SQ DAILY [facility] Last Admin: 07/19/21 09:00 Dose: Not Given Documented by: Fentanyl Citrate (Fentanyl Citr 100 Mcg/2 Ml) 25 mcg IV Q4HP PRN PRN Reason: BREAKTHROUGH PAIN Last Admin: 07/15/21 11:34 Dose: 25 mcg Documented by: Glucagon (Glucagon 1 Mg/Vial) 1 mg IM 1X PRN PRN Reason: HYPOGLYCEMIA Haloperidol Lactate (Haloperidol Lact 5 Mg/Ml Inj) 2 mg IV Q4HP PRN PRN Reason: AGITATION Hydromorphone HCl (Hydromorphone Hcl 2 Mg/Ml Inj) 2 mg IV Q4H PRN PRN Reason: Pain scale 8-10 (Severe) Propofol (Diprivan) 1,000 mg in 100 mls @ 0 mls/hr IV PRN PRN; Protocol PRN Reason: 1st Choice Ventilator Sedation Last Admin: 07/20/21 18:20 Dose: 100 mls Documented by: Sodium Chloride (Sodium Chloride) 250 mls @ 999 mls/hr IV Q15M PRN PRN Reason: HYPOTENSION Pantoprazole Sodium 80 mg/ (Sodium Chloride) 250 mls @ 25 mls/hr IV Q10H [facility]; Protocol Last Admin: 07/20/21 17:41 Dose: 250 mls Documented by: Insulin Human Regular 100 unit (/ Sodium Chloride) 100 mls @ 0 mls/hr IV CONT [facility]; Protocol Last Admin: 07/20/21 09:31 Dose: 100 mls Documented by: Sodium Chloride (Sodium Chloride) 250 mls @ 0 mls/hr IV .Q0M [facility] Cefepime HCl 1 gm/ Sodium (Chloride) 100 mls @ 200 mls/hr IV Q12HR [facility]; Protocol Cisatracurium Besylate 80 mg/ (Sodium Chloride) 200 mls @ 0 mls/hr IV PRN PRN; Protocol PRN Reason: NEUROMUSCULAR BLOCKAGE Last Admin: 07/20/21 18:30 Dose: 200 mls Documented by: Norepinephrine Bitartrate 8 mg (/ Dextrose) 508 mls @ 3.81 mls/hr IV TITR [facility]; Protocol Lorazepam (Lorazepam 2 Mg/Ml Vial) 2 mg IV Q2HP PRN PRN Reason: Sedation-Propofol not effect Midazolam HCl (Midazolam Hcl 2 Mg/2 Ml Inj) 2 mg IV Q2HP PRN PRN Reason: Sedation-Propofol not effect Last Admin: 07/15/21 10:23 Dose: 2 mg Documented by: Nutritional Formula (Vital Hp 1,000 Ml Bot) 0 ml RTH CONT [facility] Ondansetron HCl (Ondansetron 4 Mg/2 Ml Vial) 4 mg IV Q6HP PRN PRN Reason: NAUSEA / VOMITING Sodium Chloride (Flush Normal Saline 10 Ml) 10 ml IV BID [facility] Last Admin: 07/20/21 08:19 Dose: 10 ml Documented by: Sodium Chloride (Sodium Chloride 0.9% 10ml Inj) 10 ml IV UD PRN PRN Reason: Diluant Sodium Chloride (Sodium Chloride 0.9% 10ml Inj) 10 ml IV UD PRN PRN Reason: Diluant Microbiology Results 07/12/21 22:25 Blood - Blood Aerobic Blood Culture - Final No growth in 5 days. 07/12/21 22:25 Blood - Blood Anaerobic Blood Culture - Final No growth in 5 days. 07/12/21 22:10 Blood - Blood Aerobic Blood Culture - Final No growth in 5 days. 07/12/21 22:10 Blood - Blood Anaerobic Blood Culture - Final No growth in 5 days. Assessment/ Plan: Nephrology Limited IH/ ROS due to unresponsiveness. Vitals, medications, blood work and imaging reviewed in the chart General: Unresponsive. Obese. HEENT: Atraumatic Neck: Supple Respiratory: Clear to auscultation bilaterally. Cardiovascular: No edema, Regular rate/rhythm Gastrointestinal: Non-distended, No guarding Musculoskeletal: No clubbing, No contractures Integumentary: No rashes, No cyanosis Neurological: No speech [place] with medium urine. Greater than 30min patient care. Blood work reviewed in the chart. Imagings Data: EXAM DESCRIPTION: RAD - Chest Single View - 07/15/2021 8:19 am CLINICAL HISTORY: s/p chest tube COMPARISON: Chest Single View dated 07/15/2021; Chest Single View dated 07/15/2021; Chest Single View dated 07/12/2021 FINDINGS: Interval chest tube placement with tip near the mediastinum and no appreciable residual pneumothorax. Increasing subcutaneous emphysema. IMPRESSION: No appreciable residual pneumothorax following chest tube placement. Increasing subcutaneous emphysema. EXAM DESCRIPTION: CT - Chest For Pe Angio - 07/13/2021 6:16 am CLINICAL HISTORY: DYSPNEA. COMPARISON: None. TECHNIQUE: CTA of the chest was performed following intravenous administration of iodinated contrast. Axial soft tissue and lung window, and coronal and sagittal soft tissue window reconstructions were created and sent to PACS. 3D postprocessing was performed on an independent workstation, with images sent to PACS for subsequent review. This exam was performed according to our departmental dose-optimization program, which includes automated exposure control, adjustment of the mA and/or kV according to patient size and/or use of iterative reconstruction technique. FINDINGS: Suboptimal exam due to mild streak artifact from patient body hab itus. Vascular: The pulmonary arteries are adequately opacified to the segmental level. No CT evidence of acute pulmonary thromboembolism. No evidence of aortic aneurysm or dissection. Lungs and pleura: Moderate streaky pulmonary opacities with associated interstitial thickening and groundglass opacities throughout both lungs. No pleural effusion. No pneumothorax. Mediastinum and neck: Mild mediastinal and bilateral hilar lymphadenopathy. Unremarkable appearance of the thyroid gland. Cardiac: No cardiomegaly or pericardial effusion. Abdomen: Hepatic steatosis. Musculoskeletal: No concerning osseous abnormality. IMPRESSION: 1. No CTA evidence of acute pulmonary thromboembolism. 2. Moderate pulmonary opacities and interstitial thickening, concerning for infectious/inflammatory process. 3. Mild mediastinal and bilateral hilar lymphadenopathy, likely reactive. 4. Hepatic steatosis. Conclusions/Impression: KARLO likely ATN in the setting of hypotension/ hypoxemia CKD III with proteinuria -No NSAIDs -Continue gentle IVF Hyponatremia -Continue furosemide Hypocalcemia -Continue Vitamin D3 DM II with CKD -RISS -Insulin gtt prn Severe malnutrition -Advance tube feeds as tolerated -IV Albumin prn Anemia in chronic illness -Transfuse PRBC prn COVID-19 PNA Acute hypoxic respiratory failure complicated by a PTX -Continue Zinc and Vitamin C -Continue decadron -Continue chest tube -Intubated. Continue ventilatory support. Septic shock -Continue Levophed Case reviewed with Dr. Winston. Poor prognosis.
[2021-07-20 21:01] LABS: Blood Morphology Comment NOT SEEN (NOT SEEN); Platelet Estimate ADEQ
[2021-07-20] MEDS: CEFEPIME 1 GM in NA CHLORIDE 0.9% 100 ML IV SCH (21:47)
[2021-07-21] MEDS: propofoL 1,000 MG/100 ML VIAL IV PRN ×6 (01:33→23:24)
[2021-07-21] MEDS: CISATRACURIUM BESYLATE 80 MG in NA CHLORIDE 0.9% 160 ML IV PRN ×3 (01:34→22:02)
[2021-07-21] MEDS: PANTOPRAZOLE INJ 80 MG in NA CHLORIDE 0.9% 250 ML IV SCH ×3 (01:34→22:00)
[2021-07-21 06:08] LABS: Arterial Blood Carboxyhemoglob 1.5 % (0-1.5); Blood Gas Oxyhemoglobin 78.5 % (94-97); Blood O2 Saturation 80.9 % (92-98.5)
[2021-07-21 06:44] LABS: Hematocrit 23.4 % (36.0-45.0); MPV 9.2 fL (7.6-11.3); RBC Red Blood Cell Count 2.59 M/uL (3.86-4.86)
[2021-07-21 07:16] LABS: Albumin 1.5 g/dL (3.4-5.0); Bilirubin Total 0.4 mg/dL (0.2-1.0); Magnesium 2.8 mg/dL (1.8-2.4); Protein, Total 6.8 g/dL (6.4-8.2)
[2021-07-21 07:17] LABS: Potassium 5.8 mmol/L (3.5-5.1)
[2021-07-21] MEDS: INSULIN -REGULAR HUMAN 100 UNIT in NA CHLORIDE 0.9% 100 ML IV SCH (07:42)
[2021-07-21] MEDS ORDERED: SOD POLYSTYREN SUL 15 GM/60 ML UCUP FT ONE (07:42)
[2021-07-21] MEDS: CEFEPIME 1 GM in NA CHLORIDE 0.9% 100 ML IV SCH ×2 (07:43→21:46)
[2021-07-21] MEDS ORDERED: CALCIUM GLUC 10% INJ 9.3 MEQ in NA CHLORIDE 0.9% 100 ML IV ONE (08:10)
[2021-07-21] MEDS ORDERED: FUROSEMIDE 40 MG/4 ML VIAL IV ONE (08:10)
--- NOTE | 2021-07-21 08:44 | RAD REPORT ---
EXAM DESCRIPTION: RAD - Chest Single View - 07/21/2021 6:52 am CLINICAL HISTORY: resp failure Chest pain. COMPARISON: Chest Single View dated 07/20/2021; Chest Single View dated 07/19/2021; Chest Single View d ated 07/18/2021; Chest Single View dated 07/18/2021 FINDINGS: Portable technique limits examination quality. Extensive bilateral pulmonary opacities are noted in slightly improved since comparative study. Right -sided chest tube remains in place with minimal/tiny right apical pneumothorax possibly present. Tip of the ET tube is at the level of the superior record, unchanged. Enteric tube descends into the stom ach. Extensive subcutaneous emphysema again noted.
[2021-07-21] MEDS: dexAMETHasone 10 MG/ML VIAL IV SCH ×2 (10:12→22:03)
--- NOTE | 2021-07-21 14:03 | P.PN ---
Subjective Date of Service: 07/21/21 Chief Complaint: Resp failure Patient intubated. On propofol drip Nurse reports periods of cardiac pauses. She is still hypoxic on ventilation. Physical Examination - Vital Signs Temperature: 98.5 F Blood Pressure: 123/71 Pulse: 112 Respirations: 25 Pulse Ox (%): 83 Assessment And Plan - Plan Physical exam GEN: Sedated, paralyzed on Nimbex HEENT: ETT in place. CV: Tachycardic, trace pedal/hip edema Pulm: On mechanical ventilation, subcutaneous emphysema along upper chest, neck, face, L eye > R eye. Chest tube in place-right chest. ABD: Soft, nondistended Integumentary: no rash, BLE: warm, well-perfused Neuro: sedated Acute hypoxemic respiratory failure secondary to COVID-19 pneumonia Right pneumothorax s/p chest tube placement 07/15 Subcutaneous emphysema UTI KARLO Menorrhagia Morbid obesity Steroid-induced hyperglycemia acute blood loss anemia, suspect possible upper GI bleed / gastritis s/p intubation 07/15 AM Right-sided pneumothorax, s/p chest tube 07/15 AM, central line placed as well Severe subcutaneous emphysema, ER provider overnight/rn nicu 07/16 placed fenestrated catheter subcutaneously to relieve some of the air with improvement. Pulmonology is following. Continue steroids, trend inflammatory markers Family made patient DNR Patient with cardiac pauses. Hyperkalemic. Given treatment for hyperkalemia with Kayexalate, calcium gluconate, IV Lasix. Patient already on insulin drip for hyperglycemia. KARLO likely secondary to ATN, either from hypoxemia and hypotension. Nephrology is following. Anticoagulation discontinued for possible GI bleed, dc'd oral meds on 07/17 Protonix drip on 07/17, status post TPN. Transitioned to tube feeding. 1u PRBC ordered for 07/19, Transfuse for hemoglobin <7 UA with bacteriuria.urine culture is growing E. coli. Continue IV cefepime.
[2021-07-21 15:29] LABS: Magnesium 2.5 mg/dL (1.8-2.4); Phosphorus 4.3 mg/dL (2.5-4.9)
--- NOTE | 2021-07-21 16:10 | P.PN ---
Subjective Date of Service: 07/21/21 Chief Complaint: Resp failure Subjective: No new changes (Remains critically ill, intubated) Physical Examination - Vital Signs Temperature: 98.5 F Blood Pressure: 122/67 Pulse: 107 Respirations: 25 Pulse Ox (%): 85 - Physical Exam General: In no apparent distress, Comatose Respiratory: Diminished, Other (RIGHT chest tube in place, no air leak, functional, diminished. ) Cardiovascular: Regular rate/rhythm Capillary refill: <2 Seconds - Studies Imagings Data: Chest X ray reviewed, remains with possible small apical pneumothorax Assessment And Plan - Plan - continue supportive care - chest tube to remain in place on suction, reviewed chest x-ray, chest tube remains place, will continue daily chest x-rays - needles for subcutaneous emphysema removed - patient remains critically ill with covid pneumonia
[2021-07-21 16:14] LABS: Potassium 5.7 mmol/L (3.5-5.1)
[2021-07-21] MEDS: VITAL HP 1,000 ML BOT RTH SCH (19:45)
[2021-07-21] MEDS ORDERED: SOD POLYSTYREN SUL 15 GM/60 ML UCUP PO ONE (21:00)
--- NOTE | 2021-07-21 21:00 | P.PN ---
Date of Service: 07/21/21 Vital Signs Temp Pulse Resp BP Pulse Ox 98.5 F 97 H 25 H 127/58 L 84 L 07/21/21 16:10 07/21/21 18:00 07/21/21 18:00 07/21/21 18:00 07/21/21 18:00 Medications Acetaminophen (Acetaminophen 500 Mg Tab) 500 mg PO Q4HP PRN PRN Reason: TEMP > 100' F Benzonatate (Benzonatate 100 Mg Cap) 100 mg PO TID PRN PRN Reason: COUGH Chlorphenir/Hydrocodone Polistirex (Hydrocodone/Chlorphen 5 Ml/Osyr) 5 ml PO BID PRN PRN Reason: COUGH Dexamethasone (Dexamethasone 10 Mg/Ml Vial) 5 mg IV Q12H [facility] Last Admin: 07/21/21 10:12 Dose: 5 mg Documented by: Dextrose (D50w 25 Gm/50 Ml Syringe) 12.5 gm IV PRN PRN PRN Reason: HYPOGLYCEMIA Enoxaparin Sodium (Enoxaparin 40 Mg/0.4 Ml) 40 mg SQ DAILY [facility] Last Admin: 07/19/21 09:00 Dose: Not Given Documented by: Fentanyl Citrate (Fentanyl Citr 100 Mcg/2 Ml) 25 mcg IV Q4HP PRN PRN Reason: BREAKTHROUGH PAIN Last Admin: 07/15/21 11:34 Dose: 25 mcg Documented by: Glucagon (Glucagon 1 Mg/Vial) 1 mg IM 1X PRN PRN Reason: HYPOGLYCEMIA Haloperidol Lactate (Haloperidol Lact 5 Mg/Ml Inj) 2 mg IV Q4HP PRN PRN Reason: AGITATION Hydromorphone HCl (Hydromorphone Hcl 2 Mg/Ml Inj) 2 mg IV Q4H PRN PRN Reason: Pain scale 8-10 (Severe) Propofol (Diprivan) 1,000 mg in 100 mls @ 0 mls/hr IV PRN PRN; Protocol PRN Reason: 1st Choice Ventilator Sedation Last Admin: 07/21/21 19:00 Dose: 100 mls Documented by: Sodium Chloride (Sodium Chloride) 250 mls @ 999 mls/hr IV Q15M PRN PRN Reason: HYPOTENSION Pantoprazole Sodium 80 mg/ (Sodium Chloride) 250 mls @ 25 mls/hr IV Q10H [facility]; Protocol Last Admin: 07/21/21 17:12 Dose: 250 mls Documented by: Insulin Human Regular 100 unit (/ Sodium Chloride) 100 mls @ 0 mls/hr IV CONT [facility]; Protocol Last Admin: 07/21/21 07:42 Dose: 100 mls Documented by: Sodium Chloride (Sodium Chloride) 250 mls @ 0 mls/hr IV .Q0M [facility] Cefepime HCl 1 gm/ Sodium (Chloride) 100 mls @ 200 mls/hr IV Q12HR [facility]; Protocol Last Admin: 07/21/21 07:43 Dose: 100 mls Documented by: Cisatracurium Besylate 80 mg/ (Sodium Chloride) 200 mls @ 0 mls/hr IV PRN PRN; Protocol PRN Reason: NEUROMUSCULAR BLOCKAGE Last Admin: 07/21/21 07:42 Dose: 200 mls Documented by: Norepinephrine Bitartrate 8 mg (/ Dextrose) 508 mls @ 3.81 mls/hr IV TITR [facility]; Protocol Lorazepam (Lorazepam 2 Mg/Ml Vial) 2 mg IV Q2HP PRN PRN Reason: Sedation-Propofol not effect Midazolam HCl (Midazolam Hcl 2 Mg/2 Ml Inj) 2 mg IV Q2HP PRN PRN Reason: Sedation-Propofol not effect Last Admin: 07/15/21 10:23 Dose: 2 mg Documented by: Nutritional Formula (Vital Hp 1,000 Ml Bot) 0 ml RTH CONT [facility] Last Admin: 07/21/21 19:45 Dose: 1,000 ml Documented by: Ondansetron HCl (Ondansetron 4 Mg/2 Ml Vial) 4 mg IV Q6HP PRN PRN Reason: NAUSEA / VOMITING Sodium Chloride (Flush Normal Saline 10 Ml) 10 ml IV BID [facility] Last Admin: 07/21/21 07:43 Dose: 10 ml Documented by: Sodium Chloride (Sodium Chloride 0.9% 10ml Inj) 10 ml IV UD PRN PRN Reason: Diluant Sodium Chloride (Sodium Chloride 0.9% 10ml Inj) 10 ml IV UD PRN PRN Reason: Diluant Sodium Polystyrene Sulfonate (Sod Polystyren Sul 15 Gm/60 Ml Ucup) 30 gm PO 1X ONE Stop: 07/21/21 21:01 Microbiology Results 07/12/21 22:25 Blood - Blood Aerobic Blood Culture - Final No growth in 5 days. 07/12/21 22:25 Blood - Blood Anaerobic Blood Culture - Final No growth in 5 days. 07/12/21 22:10 Blood - Blood Aerobic Blood Culture - Final No growth in 5 days. 07/12/21 22:10 Blood - Blood Anaerobic Blood Culture - Final No growth in 5 days. Assessment/ Plan: Nephrology Limited IH/ ROS due to unresponsiveness. Vitals, medications, blood work and imaging reviewed in the chart General: Unresponsive. Obese. HEENT: Atraumatic Neck: Supple Respiratory: Clear to auscultation bilaterally. Cardiovascular: No edema, Regular rate/rhythm Gastrointestinal: Non-distended, No guarding Musculoskeletal: No clubbing, No contractures Integumentary: No rashes, No cyanosis Neurological: No speech Villafuerte with medium urine. Greater than 30min patient care. Blood work reviewed in the chart. Imagings Data: EXAM DESCRIPTION: RAD - Chest Single View - 07/15/2021 8:19 am CLINICAL HISTORY: s/p chest tube COMPARISON: Chest Single View dated 07/15/2021; Chest Single View dated 07/15/2021; Chest Single View dated 07/12/2021 FINDINGS: Interval chest tube placement with tip near the mediastinum and no appreciable residual pneumothorax. Increasing subcutaneous emphysema. IMPRESSION: No appreciable residual pneumothorax following chest tube placement. Increasing subcutaneous emphysema. EXAM DESCRIPTION: CT - Chest For Pe Angio - 07/13/2021 6:16 am CLINICAL HISTORY: DYSPNEA. COMPARISON: None. TECHNIQUE: CTA of the chest was performed following intravenous administration of iodinated contrast. Axial soft tissue and lung window, and coronal and sagittal soft tissue window reconstructions were created and sent to PACS. 3D postprocessing was performed on an independent workstation, with images sent to PACS for subsequent review. This exam was performed according to our departmental dose-optimization program, which includes automated exposure control, adjustment of the mA and/or kV according to patient size and/or use of iterative reconstruction technique. FINDINGS: Suboptimal exam due to mild streak artifact from patient body habitus. Vascular: The pulmonary arteries are adequately opacified to the segmental level. No CT evidence of acute pulmonary thromboembolism. No evidence of aortic aneurysm or dissection. Lungs and pleura: Moderate streaky pulmonary opacities with associated interstitial thickening and groundglass opacities throughout both lungs. No pleural effusion. No pneumothorax. Mediastinum and neck: Mild mediastinal and bilateral hilar lymphadenopathy. Unremarkable appearance of the thyroid gland. Cardiac: No cardiomegaly or pericardial effusion. Abdomen: Hepatic steatosis. Musculoskeletal: No concerning osseous abnormality. IMPRESSION: 1. No CTA evidence of acute pulmonary thromboembolism. 2. Moderate pulmonary opacities and interstitial thickening, concerning for infectious/inflammatory process. 3. Mild mediastinal and bilateral hilar lymphadenopathy, likely reactive. 4. Hepatic steatosis. Conclusions/Impression: KARLO likely ATN in the setting of hypotension/ hypoxemia CKD III with proteinuria -No NSAIDs Hyponatremia -Continue furosemide Hyperkalemia -Kayexalate as ordered Hypocalcemia -Continue Vitamin D3 DM II with CKD -RISS -Insulin gtt prn Severe malnutrition -Advance tube feeds as tolerated -IV Albumin prn Anemia in chronic illness -Transfuse PRBC prn COVID-19 PNA Acute hypoxic respiratory failure complicated by a PTX -Continue Zinc and Vitamin C -Continue decadron -Continue chest tube -Intubated. Continue ventilatory support. Septic shock -Continue Levophed Case reviewed with Dr. Krueger
[2021-07-22] MEDS: PANTOPRAZOLE INJ 80 MG in NA CHLORIDE 0.9% 250 ML IV SCH ×3 (05:52→17:28)
[2021-07-22] MEDS: INSULIN -REGULAR HUMAN 100 UNIT in NA CHLORIDE 0.9% 100 ML IV SCH (05:53)
[2021-07-22] MEDS: CISATRACURIUM BESYLATE 80 MG in NA CHLORIDE 0.9% 160 ML IV PRN ×3 (05:53→20:33)
[2021-07-22 06:19] VITALS: BMI 49.5
[2021-07-22 06:25] LABS: Absolute Lymphocytes (CBC) 2.1 K/uL (0.7-4.9); Hematocrit 22.7 % (36.0-45.0); Lymphocytes % 5.9 % (15.3-44.8); MPV 9.5 fL (7.6-11.3); RBC Red Blood Cell Count 2.49 M/uL (3.86-4.86)
[2021-07-22 06:59] LABS: Albumin 1.5 g/dL (3.4-5.0); Bilirubin Total 0.5 mg/dL (0.2-1.0); Phosphorus 3.4 mg/dL (2.5-4.9); Protein, Total 6.6 g/dL (6.4-8.2)
--- NOTE | 2021-07-22 07:13 | RAD REPORT ---
EXAM DESCRIPTION: RAD - Chest Single View - 07/22/2021 5:29 am CLINICAL HISTORY: resp failure, chest tube COMPARISON: Portable July 21, portable July 20 TECHNIQUE: AP portable chest image was obtained 07/22/2021 5:29 am . FINDINGS: Bilateral airspace opacification has not clearly changed from July 21. Right-sided ches t tube is unchanged in position. No measurable pneumothorax identified. Anterior pneumothorax can be occult on portable imaging. ET tube tip is 4 cm above the aide in good position. Feeding tube is in place extending below the d iaphragm, off the field of view. Cardiomediastinal silhouette is stable. Minimal amounts of pneumomediastinum are suspected. The patie nt has extensive subcutaneous emphysema pattern is not clearly different. No new or enlarging pleural effusion. No acute bony abnormality seen. No acute aortic findings suspe cted. IMPRESSION: Extensive bilateral airspace opacification showing no further improvement since July 21. ET tube remains in good position 4 cm above the aide. Feeding tube extends below the diaphragm, off the field of view. Right-sided chest tube has not changed positioning. No right-sided pneumothorax identifiable. Anterio r pneumothorax can be occult on portable imaging. Extensive but stable subcutaneous emphysema.
[2021-07-22] MEDS: propofoL 1,000 MG/100 ML VIAL IV PRN ×5 (07:23→20:52)
[2021-07-22] MEDS: Meropenem 1,000 MG in NA CHLORIDE 0.9% 100 ML IV SCH ×2 (09:09→20:33)
[2021-07-22] MEDS: dexAMETHasone 10 MG/ML VIAL IV SCH ×2 (11:46→22:43)
--- NOTE | 2021-07-22 12:52 | P.PN ---
Subjective Date of Service: 07/22/21 Chief Complaint: Resp failure Patient is deteriorating remaining persistently hypoxic Review of Systems is unable to be obtained Physical Examination - Vital Signs Temperature: 99.7 F Blood Pressure: 127/63 Pulse: 109 Respirations: 30 Pulse Ox (%): 75 - Physical Exam General: Unresponsive Respiratory: Other (Significant subcutaneous emphysema) Assessment & Plan - Problems (Diagnosis) (1) Acute respiratory failure due to COVID-19 Current Visit: Yes Status: Acute Plan: Respiratory failure sats below 80% on max therapy requires paralytics and propofol unlikely to survive white count patient changed to meropenem chest x- ray extensive pneumonia
[2021-07-22 14:47] LABS: Phosphorus 4.3 mg/dL (2.5-4.9)
[2021-07-22 14:49] LABS: Magnesium 2.6 mg/dL (1.8-2.4)
--- NOTE | 2021-07-22 14:51 | P.PN ---
Subjective Date of Service: 07/22/21 Chief Complaint: Resp failure Patient unable to maintain oxygen saturation on mechanical ventilation SaO2 67% on 100% FiO2. n. Physical Examination - Vital Signs Temperature: 99.7 F Blood Pressure: 120/61 Pulse: 109 Respirations: 25 Pulse Ox (%): 66 Assessment And Plan - Plan Physical exam GEN: Sedated. HEENT: ETT in place. CV: Tachycardic, trace pedal/hip edema Pulm: On mechanical ventilation, subcutaneous emphysema along upper chest, neck, face, L eye > R eye. Chest tube in place-right chest. ABD: Soft, nondistended Integumentary: no rash, BLE: warm. Neuro: sedated Acute hypoxemic respiratory failure secondary to COVID-19 pneumonia Right pneumothorax s/p chest tube placement 07/15 Subcutaneous emphysema UTI KARLO Menorrhagia Morbid obesity Steroid-induced hyperglycemia acute blood loss anemia, suspect possible upper GI bleed / gastritis s/p intubation 1/5 AM Right-sided pneumothorax, s/p chest tube 1/5 AM, central line placed as well Severe subcutaneous emphysema, ER provider overnight/quality assurance tech 07/16 placed fenestrated catheter subcutaneously to relieve some of the air with improvement. Pulmonology is following. Continue steroids, trend inflammatory markers DNR Patient with cardiac pauses. Hyperkalemia is better On insulin drip for hyperglycemia. KARLO likely secondary to ATN, either from hypoxemia and hypotension. Nephrology is following. Anticoagulation discontinued for possible GI bleed. Protonix drip on 07/17, status post TPN. Transitioned to tube feeding. 1u PRBC ordered for 07/19, Transfuse for hemoglobin <7 UA with bacteriuria.urine culture is growing E. coli. Completed IV cefepime.
--- NOTE | 2021-07-22 21:04 | P.PN ---
Date of Service: 07/22/21 Vital Signs Temp Pulse Resp BP Pulse Ox 99.8 F 124 H 25 H 121/64 66 L 07/22/21 16:00 07/22/21 16:00 07/22/21 16:00 07/22/21 16:00 07/22/21 16:00 Medications Acetaminophen (Acetaminophen 500 Mg Tab) 500 mg PO Q4HP PRN PRN Reason: TEMP > 100' F Benzonatate (Benzonatate 100 Mg Cap) 100 mg PO TID PRN PRN Reason: COUGH Chlorphenir/Hydrocodone Polistirex (Hydrocodone/Chlorphen 5 Ml/Osyr) 5 ml PO BID PRN PRN Reason: COUGH Dexamethasone (Dexamethasone 10 Mg/Ml Vial) 5 mg IV Q12H [facility] Last Admin: 07/22/21 11:46 Dose: 5 mg Documented by: Dextrose (D50w 25 Gm/50 Ml Syringe) 12.5 gm IV PRN PRN PRN Reason: HYPOGLYCEMIA Enoxaparin Sodium (Enoxaparin 40 Mg/0.4 Ml) 40 mg SQ DAILY [facility] Last Admin: 07/19/21 09:00 Dose: Not Given Documented by: Fentanyl Citrate (Fentanyl Citr 100 Mcg/2 Ml) 25 mcg IV Q4HP PRN PRN Reason: BREAKTHROUGH PAIN Last Admin: 07/15/21 11:34 Dose: 25 mcg Documented by: Glucagon (Glucagon 1 Mg/Vial) 1 mg IM 1X PRN PRN Reason: HYPOGLYCEMIA Haloperidol Lactate (Haloperidol Lact 5 Mg/Ml Inj) 2 mg IV Q4HP PRN PRN Reason: AGITATION Hydromorphone HCl (Hydromorphone Hcl 2 Mg/Ml Inj) 2 mg IV Q4H PRN PRN Reason: Pain scale 8-10 (Severe) Last Admin: 07/22/21 20:54 Dose: 2 mg Documented by: Propofol (Diprivan) 1,000 mg in 100 mls @ 0 mls/hr IV PRN PRN; Protocol PRN Reason: 1st Choice Ventilator Sedation Last Admin: 07/22/21 20:52 Dose: 100 mls Documented by: Sodium Chloride (Sodium Chloride) 250 mls @ 999 mls/hr IV Q15M PRN PRN Reason: HYPOTENSION Pantoprazole Sodium 80 mg/ (Sodium Chloride) 250 mls @ 25 mls/hr IV Q10H [facility]; Protocol Last Admin: 07/22/21 17:28 Dose: 250 mls Documented by: Insulin Human Regular 100 unit (/ Sodium Chloride) 100 mls @ 0 mls/hr IV CONT [facility]; Protocol Last Admin: 07/22/21 05:53 Dose: 100 mls Documented by: Sodium Chloride (Sodium Chloride) 250 mls @ 0 mls/hr IV .Q0M [facility] Cisatracurium Besylate 80 mg/ (Sodium Chloride) 200 mls @ 0 mls/hr IV PRN PRN; Protocol PRN Reason: NEUROMUSCULAR BLOCKAGE Last Admin: 07/22/21 20:33 Dose: 200 mls Documented by: Norepinephrine Bitartrate 8 mg (/ Dextrose) 508 mls @ 3.81 mls/hr IV TITR [facility]; Protocol Meropenem 1,000 mg/ Sodium (Chloride) 100 mls @ 100 mls/hr IV Q12HR [facility] Last Admin: 07/22/21 20:33 Dose: 100 mls Documented by: Lorazepam (Lorazepam 2 Mg/Ml Vial) 2 mg IV Q2HP PRN PRN Reason: Sedation-Propofol not effect Midazolam HCl (Midazolam Hcl 2 Mg/2 Ml Inj) 2 mg IV Q2HP PRN PRN Reason: Sedation-Propofol not effect Last Admin: 07/15/21 10:23 Dose: 2 mg Documented by: Nutritional Formula (Vital Hp 1,000 Ml Bot) 0 ml RTH CONT [facility] Last Admin: 07/21/21 19:45 Dose: 1,000 ml Documented by: Ondansetron HCl (Ondansetron 4 Mg/2 Ml Vial) 4 mg IV Q6HP PRN PRN Reason: NAUSEA / VOMITING Sodium Chloride (Flush Normal Saline 10 Ml) 10 ml IV BID [facility] Last Admin: 07/22/21 20:33 Dose: 10 ml Documented by: Sodium Chloride (Sodium Chloride 0.9% 10ml Inj) 10 ml IV UD PRN PRN Reason: Diluant Sodium Chloride (Sodium Chloride 0.9% 10ml Inj) 10 ml IV UD PRN PRN Reason: Diluant Microbiology Results 07/12/21 22:25 Blood - Blood Aerobic Blood Culture - Final No growth in 5 days. 07/12/21 22:25 Blood - Blood Anaerobic Blood Culture - Final No growth in 5 days. 07/12/21 22:10 Blood - Blood Aerobic Blood Culture - Final No growth in 5 days. 07/12/21 22:10 Blood - Blood Anaerobic Blood Culture - Final No growth in 5 days. Assessment/ Plan: Nephrology Limited IH/ ROS due to unresponsiveness. Vitals, medications, blood work and imaging reviewed in the chart General: Unresponsive. Obese. HEENT: Atraumatic Neck: Supple Respiratory: Clear to auscultation bilaterally. Cardiovascular: No edema, Regular rate/rhythm Gastrointestinal: Non-distended, No guarding Musculoskeletal: No clubbing, No contractures Integumentary: No rashes, No cyanosis Neurological: No speech Villafuerte with medium urine. Greater than 30min patient care. Blood work reviewed in the chart. Imagings Data: EXAM DESCRIPTION: RAD - Chest Single View - 07/15/2021 8:19 am CLINICAL HISTORY: s/p chest tube COMPARISON: Chest Single View dated 07/15/2021; Chest Single View dated 07/15/2021; Chest Single View dated 07/12/2021 FINDINGS: Interval chest tube placement with tip near the mediastinum and no appreciable residual pneumothorax. Increasing subcutaneous emphysema. IMPRESSION: No appreciable residual pneumothorax following chest tube placement. Increasing subcutaneous emphysema. EXAM DESCRIPTION: CT - Chest For Pe Angio - 07/13/2021 6:16 am CLINICAL HISTORY: DYSPNEA. COMPARISON: None. TECHNIQUE: CTA of the chest was performed following intravenous administration of iodinated contrast. Axial soft tissue and lung window, and coronal and sagittal soft tissue window reconstructions were created and sent to PACS. 3D postprocessing was performed on an independent workstation, with images sent to PACS for subsequent review. This exam was performed according to our departmental dose-optimization program, which includes automated exposure control, adjustment of the mA and/or kV according to patient size and/or use of iterative reconstruction technique. FINDINGS: Suboptimal exam due to mild streak artifact from patient body habitus. Vascular: The pulmonary arteries are adequately opacified to the segmental level. No CT evidence of acute pulmonary thromboembolism. No evidence of aortic aneurysm or dissection. Lungs and pleura: Moderate streaky pulmonary opacities with associated interstitial thickening and groundglass opacities throughout both lungs. No pleural effusion. No pneumothorax. Mediastinum and neck: Mild mediastinal and bilateral hilar lymphadenopathy. Unremarkable appearance of the thyroid gland. Cardiac: No cardiomegaly or pericardial effusion. Abdomen: Hepatic steatosis. Musculoskeletal: No concerning osseous abnormality. IMPRESSION: 1. No CTA evidence of acute pulmonary thromboembolism. 2. Moderate pulmonary opacities and interstitial thickening, concerning for infectious/inflammatory process. 3. Mild mediastinal and bilateral hilar lymphadenopathy, likely reactive. 4. Hepatic steatosis. Conclusions/Impression: KARLO likely ATN in the setting of hypotension/ hypoxemia CKD III with proteinuria -No NSAIDs Hyponatremia -Furosemide prn Hyperkalemia -Kayexalate as ordered Hypocalcemia -Continue Vitamin D3 DM II with CKD -RISS -Insulin gtt prn Severe malnutrition -Advance tube feeds as tolerated -IV Albumin prn Anemia in chronic illness -Transfuse PRBC prn COVID-19 PNA Acute hypoxic respiratory failure complicated by a PTX -Continue Zinc and Vitamin C -Continue decadron -Continue chest tube -Intubated. Continue ventilatory support. Septic shock -Continue Levophed
[2021-07-23 00:25] VITALS: TEMP 98.3
[2021-07-23 00:28] VITALS: O2SAT 77
[2021-07-23] MEDS: VITAL HP 1,000 ML BOT RTH SCH (00:35)
[2021-07-23] MEDS: propofoL 1,000 MG/100 ML VIAL IV PRN (00:39)
[2021-07-23 01:29] VITALS: BP 56/37
--- NOTE | 2021-07-23 18:54 | P.DS ---
Admission Date: 07/13/21 Discharge Date: 07/23/21 Disposition: Discharge Condition: Reason for Admission: Resp failure Brief History of Present Illness: Ms. Khan is a 56 yo F who presented with two days of increasing SOB and BARRETT. Upon presentation, room air sats were 68%, increased to 88% on nonrebreather, and then she was placed on BIPAP for sats in the 90s. She reported 4 weeks of fever, weakness, cough, pleuritic pain wheezing, and diarrhea. Also reported episodes of incontinence and lower abdominal pain with cough. COVID test positive in the ED. Patient admitted for further management. Hospital Course: Acute hypoxemic respiratory failure secondary to COVID-19 pneumonia Right pneumothorax s/p chest tube placement / Subcutaneous emphysema UTI KARLO Menorrhagia Morbid obesity Steroid-induced hyperglycemia acute blood loss anemia, suspect possible upper GI bleed / gastritis Patient admitted to the medical floor and started on COVID treatment with IV steroid. Pulmonary consulted. Patient started on baricitinib. Her respiratory condition worsened. She was subsequently intubated. She developed right-sided pneumothorax. had chest tube placed, central line placed as well She developed severe subcutaneous emphysema. Patient clinical condition continued to worsen. She was treated with aggressive antibiotic therapy including meropenem and cefepime. She did not respond to treatment. Family made her DNR She developed cardiac pauses and became hypoxic even on the mechanical ventilation. Nephrology saw patient for acute renal failure. Anticoagulation discontinued for possible GI bleed and history of vagina bleeding. Received 1u PRBC. Her clinical condition worsen, she developed hypotension, family requested no escalation of treatment and she eventually on 07/23/2021 at 0111. Vital Signs/Physical Exam: Temp Pulse Resp BP Pulse Ox 98.3 F 57 25 H 56/37 L 78 L 07/23/21 00:00 07/23/21 01:00 07/23/21 01:00 07/23/21 01:00 07/23/21 01:00 Laboratory Data at Discharge: WBC Cancelled 07/23/21 05:00 Hgb Cancelled 07/23/21 05:00 Hct Cancelled 07/23/21 05:00 Plt Count Cancelled 07/23/21 05:00 PT 12.5 SECONDS (9.5-12.5) 07/12/21 22:10 INR 1.09 07/12/21 22:10 APTT 30.3 SECONDS (24.3-36.9) 07/12/21 22:10 Sodium Cancelled 07/23/21 05:00 Potassium Cancelled 07/23/21 05:00 BUN Cancelled 07/23/21 05:00 Creatinine Cancelled 07/23/21 05:00 Glucose Cancelled 07/23/21 05:00 Uric Acid 15.0 mg/dL (2.6-6.0) H 07/16/21 03:07 Phosphorus Cancelled 07/23/21 05:00 Magnesium Cancelled 07/23/21 05:00 Total Bilirubin Cancelled 07/23/21 05:00 AST Cancelled 07/23/21 05:00 ALT Cancelled 07/23/21 05:00 Alkaline Phosphatase Cancelled 07/23/21 05:00 Triglycerides 293 mg/dL (<150) H 07/14/21 02:51 Cholesterol 111 mg/dL (<200) 07/14/21 02:51 HDL Cholesterol 29 mg/dL (40-60) L 07/14/21 02:51 Cholesterol/HDL Ratio 3.83 07/14/21 02:51 Lipase 167 U/L (73-393) 07/12/21 22:10 Home Medications: NK [No Home Meds] 07/13/21 Followup: NONE,NONE [Primary Care Provider] -
== END 2021-07-23 04:00 | disposition expired | DRG 870 ==
LOC: ER 22:07 → ERHOLD 07-13 00:41 → 4TH 07-14 09:43 → ERHOLD 07-14 14:36 → 3RD-ICU 07-17 21:10
PROVIDERS: ADMIT Internal Medicine; ATTEND Internal Medicine
PROC: 0W9900Z Drainage of Right Pleural Cavity with Drainage Device, Open Approach (ICD-10-PCS; principal; 2021-07-15)
PROC: 06HY33Z Insertion of Infusion Device into Lower Vein, Percutaneous Approach (ICD-10-PCS; 2021-07-15)
PROC: 0BH17EZ Insertion of Endotracheal Airway into Trachea, Via Natural or Artificial Opening (ICD-10-PCS; 2021-07-15)
PROC: 5A1955Z Respiratory Ventilation, Greater than 96 Consecutive Hours (ICD-10-PCS; 2021-07-19)
PROC: 30233N1 Transfusion of Nonautologous Red Blood Cells into Peripheral Vein, Percutaneous Approach (ICD-10-PCS; 2021-07-19)
DX: A41.89 Other specified sepsis (principal); R65.21 Severe sepsis with septic shock; N17.0 Acute kidney failure with tubular necrosis; J96.01 Acute respiratory failure with hypoxia; U07.1 COVID-19; J12.82 Pneumonia due to coronavirus disease 2019; K29.71 Gastritis, unspecified, with bleeding; E43 Unspecified severe protein-calorie malnutrition; J93.9 Pneumothorax, unspecified; N39.0 Urinary tract infection, site not specified; Z68.42 Body mass index [BMI] 45.0-49.9, adult; D62 Acute posthemorrhagic anemia; E87.1 Hypo-osmolality and hyponatremia; J98.2 Interstitial emphysema; B96.20 Unspecified Escherichia coli [E. coli] as the cause of diseases classified elsewhere; N92.0 Excessive and frequent menstruation with regular cycle; E66.01 Morbid (severe) obesity due to excess calories; R73.9 Hyperglycemia, unspecified; T38.0X5A Adverse effect of glucocorticoids and synthetic analogues, initial encounter; Y92.230 Patient room in hospital as the place of occurrence of the external cause; Z66 Do not resuscitate; I95.9 Hypotension, unspecified; E87.5 Hyperkalemia; E83.51 Hypocalcemia; D63.8 Anemia in other chronic diseases classified elsewhere
CPT/HCPCS: 0240U; 36415; 51702; 71045; 71275; 74018; 76830; 80048; 80053; 80061; 80076; 81001; 81003; 81015; 82570; 82728; 82805; 82947; 83605; 83690; 83735; 83880; 84100; 84132; 84145; 84300; 84439; 84443; 84484; 84550; 85014; 85018; 85025; 85027; 85379; 85610; 85730; 86140; 86850; 86900; 86901; 87040; 87077; 87086; 87088; 87186; 90471; 93005; 93925; 93970; 94002; 94003; 94660; 94760; 96372; 96374; 99285; C9113; J0610; J0692; J1100; J1170; J1265; J1650; J1815; J1940; J2185; J2250; J2270; J2704; J2920; J2930; J3010; J7030; J7050; J7060; J7605; P9016; Q2035; Q9967